=== PATIENT | female | born 1965 | race Caucasian/White ===

== ENCOUNTER 2020-08-10 09:22 | Outpatient (REF) | payer OTHER, SELFPAY ==
[2020-08-10 11:26] LABS: Free T4 (Free Thyroxine) 0.96 ng/dL (0.71-1.85); Thyroid Stimulating Hormone 0.67 uIU/mL (0.32-4.0)
[2020-08-11 08:31] LABS: Triiodothyronine T3 Free 3.4 pg/mL (2.3-4.2)
== END 2020-08-10 09:23 | disposition home or self-care (01) ==
LOC: HO.LAB 09:22
PROVIDERS: PCP Internal Medicine; Visit Provider Internal Medicine
DX: E03.9 Hypothyroidism, unspecified (principal); E04.9 Nontoxic goiter, unspecified
CPT/HCPCS: 36415; 84439; 84443; 84481

== ENCOUNTER 2020-09-30 17:06 | Outpatient (REF) | payer OTHER, SELFPAY ==
--- NOTE | ~2020-09-30 | XR_ITS ---
EXAMINATION: XR KNEE, LEFT CLINICAL INFORMATION: Pain. COMPARISON: None. TECHNIQUE: 4 views of the left knee. FINDINGS: There is no evidence of acute fracture or dislocation of the left knee. Left knee joint spaces are maintained. No left knee effusion. There is mild spurring undersurface of the patella. XR/XR knee LT 2V IMPRESSION: Mild degenerative change patellofemoral joint.
== END 2020-09-30 17:07 | disposition home or self-care (01) ==
LOC: HO.XRAY 17:06
PROVIDERS: PCP Internal Medicine; Visit Provider Internal Medicine
DX: M25.569 Pain in unspecified knee (principal)
CPT/HCPCS: 73560

== ENCOUNTER 2020-11-10 07:22 | Outpatient (REF) | payer OTHER, SELFPAY ==
--- NOTE | ~2020-11-10 | CT_ITS ---
EXAMINATION: CT CHEST SCREENING CLINICAL INFORMATION: Nicotine dependence. Screening. COMPARISON: None. TECHNIQUE: Multidetector volumetric CT imaging of the chest is performed without contrast using low dose technique. Additional 2-D coronal and sagittal reformatted images and axial 3-D maximum intensity projection (MIP) images are generated on the CT workstation. This CT examination was performed using dose optimization techniques as appropriate, variously including the following: *Automated exposure control *Adjustment of mA and/or kV according to patient size (this includes techniques or standardized protocols for targeted exams where dose is matched to indication/reason for exam; i.e. extremities or head) *Use of iterative reconstruction technique DLP: 74 mGy-cm FINDINGS: LUNGS: The lungs are well-expanded and clear of acute pneumonic process. There are no pulmonary nodules, mass or consolidation. There is mild bilateral apical parenchymal scarring and apical pleural thickening. MEDIASTINUM: The thyroid lobes are symmetrically enlarged with mild compression of the trachea. Heart size and the great vessels are normal caliber. There is no pericardial effusion. No abnormal sized mediastinal or hilar lymph nodes seen. There is no pericardial effusion. PLEURA: There is minimal bilateral apical pleural thickening. No pleural effusion or pleural mass seen. AXILLA: No lymphadenopathy. UPPER ABDOMEN: Visualized liver, spleen, pancreas, bilateral adrenal glands, and the gallbladder appear unremarkable. OSSEOUS STRUCTURES: There is no lytic or sclerotic process seen. There is moderate ventral spondylosis mid and lower dorsal spine. CT/CT lung screening IMPRESSION: Unremarkable CT chest exam. ASSESSMENT: Lung-RADS category 1: Negative. RECOMMENDATION: Low-dose annual CT chest.
== END 2020-11-10 07:23 | disposition home or self-care (01) ==
LOC: HO.CT 07:22
PROVIDERS: PCP Internal Medicine; Visit Provider Surgery
DX: Z12.2 Encounter for screening for malignant neoplasm of respiratory organs (principal); F17.210 Nicotine dependence, cigarettes, uncomplicated
CPT/HCPCS: 71271

== ENCOUNTER 2021-12-02 15:05 | Outpatient (REF) | payer OTHER, SELFPAY ==
--- NOTE | ~2021-12-02 | CT_ITS ---
EXAMINATION: CT CHEST SCREENING CLINICAL INFORMATION: Current smoker. Per day. 40 year smoking history. COMPARISON: Previous chest CT October 2020 TECHNIQUE: Multidetector volumetric CT imaging of the chest is performed without contrast using low dose technique. Additional 2D coronal and sagittal reformatted images and axial 3D maximum intensity projection (MIP) images are generated on the CT workstation. This CT examination was performed using dose optimization techniques as appropriate, variously including the following: *Automated exposure control *Adjustment of mA and/or kV according to patient size (this includes techniques or standardized protocols for targeted exams where dose is matched to indication/reason for exam; i.e. extremities or head) *Use of iterative reconstruction technique DLP: 201 mGy-cm FINDINGS: LUNGS: There are small clustered peribronchial 2 mm right upper lobe nodules for example 109 series 5 that are stable. There is a 2 mm calcified right lower lobe nodule axial image 237 series 5. The lungs are otherwise clear. MEDIASTINUM: The thyroid gland is enlarged and extends substernally into the superior mediastinum. This causes mild narrowing of the trachea. The mediastinum is otherwise normal. PLEURA: There is no pleural effusion. No pleural mass or thickening. AXILLA: No lymphadenopathy. UPPER ABDOMEN: There is fullness of the left adrenal gland that is stable. OSSEOUS STRUCTURES: There are mild degenerative changes of the spine. CT/CT lung screening IMPRESSION: Stable small calcified and noncalcified nodules. Stable enlargement of the thyroid gland. ASSESSMENT: Lung-RADS category 2: Benign RECOMMENDATION: Annual low-dose chest CT follow-up recommended.
== END 2021-12-02 15:06 | disposition home or self-care (01) ==
LOC: HO.CT 15:05
PROVIDERS: Visit Provider Physician Assistant Medical
DX: F17.200 Nicotine dependence, unspecified, uncomplicated (principal)
CPT/HCPCS: 71271

== ENCOUNTER 2022-12-02 07:55 | Outpatient (REF) | payer OTHER, SELFPAY ==
--- NOTE | ~2022-12-02 | CT_ITS ---
EXAMINATION: CT CHEST SCREENING CLINICAL INFORMATION: Nicotine dependence. Smoker, 1 pack per day for 40 years. COMPARISON: CT lung screening 12/02/2021 TECHNIQUE: Multidetector volumetric CT imaging of the chest is performed without contrast using low dose technique. Additional 2D coronal and sagittal reformatted images and axial 3D maximum intensity projection (MIP) images are generated on the CT workstation. This CT examination was performed using dose optimization techniques as appropriate, variously including the following: *Automated exposure control *Adjustment of mA and/or kV according to patient size (this includes techniques or standardized protocols for targeted exams where dose is matched to indication/reason for exam; i.e. extremities or head) *Use of iterative reconstruction technique DLP: 521 mGy-cm FINDINGS: LUNGS: The lungs are well-expanded with no acute pneumonic process. 2 mm clustered nodules, right upper lobe anterior segment, are again visualized on axial image 113/6 and are stable. There is a 2 mm nodule, right lower lobe axial image 245/6, stable. No new nodules seen. MEDIASTINUM: The thyroid lobes are enlarged, right greater than left, with mild compromise of the tracheal airway. The central tracheal and bronchial airways are otherwise patent. The heart size and the great vessels are normal caliber. No abnormal size mediastinal or hilar lymph nodes seen. CORONARY ARTERY CALCIFICATION: None visualized on this study. PLEURA: There is no pleural effusion. No pleural mass or thickening. AXILLA: No lymphadenopathy. UPPER ABDOMEN: Visualized liver, spleen, pancreas and bilateral adrenal glands are unremarkable. OSSEOUS STRUCTURES: No aggressive lytic or sclerotic process seen. There is moderate ventral spondylosis, mid and lower dorsal spine. CT/CT lung screening IMPRESSION: Stable bilateral pulmonary nodules. No new nodules seen. ASSESSMENT: Lung-RADS category 2: Benign RECOMMENDATION: Low-dose annual CT chest
== END 2022-12-02 07:56 | disposition home or self-care (01) ==
LOC: HO.CT 07:55
PROVIDERS: PCP Internal Medicine; Visit Provider Physician Assistant Medical
DX: Z12.2 Encounter for screening for malignant neoplasm of respiratory organs (principal); F17.210 Nicotine dependence, cigarettes, uncomplicated
CPT/HCPCS: 71271

== ENCOUNTER 2023-05-16 10:54 | Outpatient (AMB) | payer OTHER, SELFPAY ==
[2023-05-16 10:56] VITALS: BP 110/72; PULSE 77; O2SAT 99; BMI 33.1
--- NOTE | 2023-05-16 10:56 | MHC.PC.OV ---
Vital Signs 05/16/23 10:56 Height 5 ft 6 in Weight 205 lb BMI 33.1 BP 110/72 Blood Pressure Location Lt brachial Position Sitting Pulse 77 Pulse Source Pulse Oximeter Pulse Oximetry (%) 99 Oxygen Delivery Method Room Air Intake Visit Reasons: Right knee pain Allergies No Known Allergies Allergy (Verified 05/16/23 10:56) Medication List - Last Reconciled 05/16/23 by Felipe Javier MD No Known Home Meds Tobacco use date assessed: 05/16/23 Dental Screening Dental Screen Date: 05/16/23 Did you have a dental visit in the last 12 months?: Yes Did you have a dental problem in the last 6 months where you did not have access to dental care?: No Was dental information given to patient?: Patient has dentist HPI Right knee pain HPI Details right knee pain and swelling for a few weeks PFSH Medical History Goiter Surgical History No pertinent past surgical history Family History Father CVD (cardiovascular disease) Mother Hypertension Social History Housing: House Alcohol intake: current Alcohol intake frequency: a few times a month Patient Tobacco Use Status: Current everyday Tobacco user Tobacco use type: Cigarette Cigarettes Per Day: 10 e-Cigarette/Vaping Use: Never Used Second Hand Smoke Exposure: Yes service: No Current occupational status: employed 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 1. Little interest or pleasure in doing things: not at all 2. Feeling down, depressed, or hopeless: not at all 3. Trouble falling or staying asleep, or sleeping too much: not at all 4. Feeling tired or having little energy: not at all 5. Poor appetite or overeating: not at all 6. Feeling bad about yourself - or that you are a failure or have let yourself or your family down: not at all 7. Trouble concentrating on things, such as reading the newspaper or watching television: not at all 8. Moving or speaking so slowly that other people could have noticed. Or the opposite - being so fidgety or restless that you have been moving around a lot more than usual: not at all 9. Thoughts that you would be better off or of hurting yourself in some way: not at all Total score: 0 Depression Screening Interpretation: Negative Depression Screening Done: Yes Source: Developed by Drs. Andrew Bales, Gabriela Savage, Reza Bartlett and colleagues, with an educational taylor from [employer]. Thrive Questionnaire Date Thrive assessed: 05/16/23 I am a: Patient What is your living situation today?: I have a steady place to live Within the past 12 months, did the food you bought not last and you didn't have the money to get more?: Never true Within the past 12 months, did you worry whether your food would run out before you got money to buy more?: Never true Do you have trouble paying for medicines?: No Do you have trouble getting transportation to medical appointments?: No Do you have trouble paying your heating and electricity bill?: No Do you have trouble taking care of your child, family member or friend?: No Do you have trouble with day-to-day activities such as bathing, preparing meals, shopping, managing finances, etc.?: No Are you currently unemployed and looking for a job?: No Are you interested in more education?: No Please select the resources that you would like help with: None AUDIT C Alcohol Use Questionnaire (AUDIT-C) 1. How often do you have a drink containing alcohol?: Monthly or less Total Score: 1 Score Reviewed/Action Taken: Yes ALEXSANDRA-7 AMB Questionnaire ALEXSANDRA-7 Date ALEXSANDRA - 7 assessed: 05/16/23 Feeling nervous, anxious, or on edge: 0 = Not at all Not being able to stop or control worryin = Not at all Worrying too much about different things: 0 = Not at all Trouble relaxin = Not at all Being so restless that it is hard to sit still: 0 = Not at all Becoming easily annoyed or irritable: 0 = Not at all Feeling afraid as if something awful might happen: 0 = Not at all Total ALEXSANDRA-7 score (0-4 normal; 5-9 mild; 10-14 moderate; 15-21 severe): 0 Source: Developed by Drs. Andrew Bales, Gabriela Savage, Reza Bartlett and colleagues, with an educational taylor from [employer]. Review of Systems Const Denies chills, Denies headache(s) and Denies weight loss ENT Denies headache(s) Card Denies chest pain, Denies syncope, Denies irregular heart rhythm and Denies dyspnea Resp Denies chest congestion, Denies cough and Denies dyspnea GI Denies abdominal pain, Denies change in stool character, Denies nausea and Denies vomiting Musc Denies deformity and Denies joint swelling Neuro Denies syncope and Denies headache(s) Physical exam (Primary Care) Vital Signs: Last Vital Signs Pulse 77 05/16/23 10:56 BP 110/72 05/16/23 10:56 Pulse Ox 99 05/16/23 10:56 Oxygen Delivery Method Room Air 05/16/23 10:56 BMI result Body Mass Index 33.1 Tobacco/Smoking Status: Tobacco use Status Tobacco use date assessed 05/16/23 05/16/23 10:58 Patient Tobacco Use Status Current everyday Tobacco 05/16/23 10:58 Tobacco use type Cigarette 05/16/23 10:58 e-Cigarette/Vaping Use Never Used 05/16/23 10:58 PHQ-9: PHQ-9 Score PHQ-9: Total score 0 05/16/23 10:58 Depression Screening Interpretation: Negative Thrive Assessment: Date of Thrive Assessment Date Thrive assessed 05/16/23 05/16/23 10:58 Const General: cooperative, comfortable, no acute distress and alert Neck Neck: Yes no lymphadenopathy Thyroid: Thyroid normal Resp Effort & Inspection: normal respiratory effort Auscultation: clear to auscultation bilaterally Percussion: percussion normal Cardio Jugular venous distension: no JVD Palpation: normal PMI Rate: regular rate Rhythm: regular rhythm Heart sounds: S1 normal heart sound present and S2 normal heart sound present GI Inspection: Yes normal to inspection Palpation (GI): No hepatosplenomegaly present Skin General skin exam: no rashes or lesions noted Extrem General: Yes no clubbing, cyanosis or edema Assessment and Plan Assessment & Plan (1) Knee pain: Code(s): M25.569 - Pain in unspecified knee Plan: xr ice (2) Obesity: Code(s): E66.9 - Obesity, unspecified Plan: nut ref Orders: Orders Comprehensive Fouke. Panel Fast Today N28.9 - Disorder of kidney and ureter, unspecified Lipid Panel Today E78.5 - Hyperlipidemia, unspecified XR knee RT 2V Today M25.569 - Pain in unspecified knee Complete Blood Count Auto Diff Today D64.9 - Anemia, unspecified Thyroid Stimulating Hormone Today E03.9 - Hypothyroidism, unspecified Referrals Environmental Health Manager Nutrition Referral E66.9 - Obesity, unspecified Coding Level of Care Code Est Pt Level 3 (43723) Diagnoses Knee pain M25.569 Obesity E66.9 Additional Codes PHQ-9 - 15531 - PHQ-9 Billing: ([id number])
== END 2023-05-16 11:35 | disposition home or self-care (01) ==
PROVIDERS: PCP Internal Medicine; Visit Provider Internal Medicine
DX: M25.561 Pain in right knee (principal); E66.9 Obesity, unspecified; Z68.33 Body mass index [BMI] 33.0-33.9, adult
CPT/HCPCS: 99213

== ENCOUNTER 2023-06-29 09:01 | Outpatient (AMB) | payer OTHER, SELFPAY ==
--- NOTE | 2023-06-29 09:03 | A.OFFVIS_ITS ---
Intake VS Expanded 06/29/23 09:05 06/29/23 09:15 Height 5 ft 5.5 in 5 ft 5.5 in Weight 207 lb 10.807 oz 208 lb BMI 34.0 34.1 Intake Visit Reasons: Obesity/confirm Allergies No Known Allergies Allergy (Verified 05/16/23 10:56) HPI Nutrition Presentation Details Pt presents for MNT for Obesity. The Pt was referred by PCP, Jose Juan Griffin Pt reports gradually working on reducing calories and has lost 15-20 lbs in over a year. Pt reports now weight has plateaued. Pt reports physical activity has lessened related to winter season Pt reports wanting to work on reducing on smoking however concerned about weight gain post smoking cessation goal weight loss 20 lbs in 6 months Reports having 3 meals per day B: Granola, probiotic and fruits L: chicken/potatoes, water Dinner: chicken/rice or potatoes, snack: fruit or crackers, pastries food frequency fruit 1/d dairy: 0-1/d fish: 1x/wk water : tea 2 cups/d, glass of milk with dinner pastries : 1-2/d ETOH: occ Smokin/2 ppd PMI-Bnggyii-Zk.Jeor Equation Height 5 ft 5.5 in Weight 208 lb Resting Metabolic Rate 1526.14 Calculated Activity Level Sedentary Calories Needed to Maintain Weight 1831.37 Diagnosis Nutrition problem #1 excessive energy intake As related to (etiology) #1 diagnosis As evidenced by (sign/symptom) #1 high BMI (34.1 on 06/2023) Monitoring/Goals Nutrition problem monitoring total CHO intake, weight and oral fluids Nutrition goal/outcome list 3 CHO foods Outcome progress verbalized understanding Learning/Education Readiness to learn good Stages of change action Most Recent Diabetes Results: Creatinine 0.81 MG/DL (0.5-1.4) 07/08/19 Blood Urea Nitrogen 23 MG/DL (9-16) H 07/08/19 Sodium 143 MMOL/L (135-145) 07/08/19 Potassium 4.5 MMOL/L (3.3-5.1) 07/08/19 Chloride 107 MMOL/L (96-108) 07/08/19 Calcium 9.4 MG/DL (8.4-10.2) 07/08/19 AST 18 U/L (5-31) 07/08/19 ALT 21 U/L (0-31) 07/08/19 Total Protein 7.1 G/DL (6.5-8.0) 07/08/19 Albumin 4.7 G/DL (3.5-5.0) 07/08/19 PFSH Medical History Goiter Surgical History No pertinent past surgical history Family History Father CVD (cardiovascular disease) Mother Hypertension Social History Housing: House Alcohol intake: current Alcohol intake frequency: a few times a month Patient Tobacco Use Status: Current everyday Tobacco user Tobacco use type: Cigarette Cigarettes Per Day: 10 e-Cigarette/Vaping Use: Never Used Second Hand Smoke Exposure: Yes service: No Current occupational status: employed 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 Cognitive needs: No Hearing needs: No Vision needs: Yes (reading glasses) Assessment & Plan Assessment & Plan (1) Obesity: Code(s): E66.9 - Obesity, unspecified Plan: wt: 95 kg Est kcal needs as per MSJ: 1800 (40% carb, 30% protein/fat) Est fluid needs as per 25- ml/d: 2850 Est prot per day as per 1 g/kg bw: 95 Recommend fiber intake : 8-10 g per day and gradually increase to 25-28 g per day for women and 35-38 g for men or as tolerated Recommend sodium intake per day : less than 2000 mg Educated patient on: ( R = reviewed V = verbalizes understanding N/R = needs review N/A = not applicable * Food sources of carbohydrate, adequate serving sizes and its role in various health conditions: R * Differences between complex carbohydrates a simple carbohydrates, role of fiber in diet: R * Differences between types of fats and role in diet (mono on saturated fat fatty acids, saturated fatty acids, trans fats): R * Food sources of sodium in salt and healthy modifications for heart health in kidney health: NR * Vitamins and minerals: NR * Healthy plate method concept: R * Physical activity: Benefits a precaution: R V Patient Instructions: Practice mindful eating strategies Work on reducing total carbohydrate at meals to less than 60 g following healthy plate method Keep hydrated by having low sugar or no sugar containing beverages Coding Level of Care Code Nutr Indiv Intake (75308) Diagnoses Obesity E66.9 Time Spent (min) 30
[2023-06-29 09:05] VITALS: BMI 34.0
[2023-07-10 09:17] VITALS: BMI 34.1
== END 2023-06-29 09:50 | disposition home or self-care (01) ==
PROVIDERS: PCP Internal Medicine; Visit Provider Dietitian, Registered
DX: E66.9 Obesity, unspecified (principal)

== ENCOUNTER → 2023-06-29 09:01 | Outpatient (BNVA) | payer OTHER, SELFPAY | PROVIDERS: PCP Internal Medicine; Visit Provider Dietitian, Registered | DX: E66.9 Obesity, unspecified (principal); Z68.34 Body mass index [BMI] 34.0-34.9, adult; Z71.3 Dietary counseling and surveillance | CPT/HCPCS: 97802 ==

== ENCOUNTER 2024-01-09 16:19 | Outpatient (REF) | payer OTHER, SELFPAY ==
--- NOTE | ~2024-01-09 | CT_ITS ---
EXAMINATION: CT LOW-DOSE SCREENING CHEST WITHOUT CONTRAST CLINICAL INFORMATION: Nicotine dependence, cigarettes, uncomplicated. The patient is a current smoker with a 45 pack-year history of smoking. COMPARISON: Multiple prior CT scans of the chest, the most recent of which is dated 12/02/2022 and the most remote of which is dated 11/10/2020. TECHNIQUE: Multidetector volumetric CT imaging of the chest is performed on a Siemens SOMATOM Definition scanner without contrast using low dose technique. Additional 2D coronal and sagittal reformatted images and axial 3D maximum intensity projection (MIP) images are generated on the CT workstation. This CT examination was performed using dose optimization techniques as appropriate, variously including the following: *Automated exposure control *Adjustment of mA and/or kV according to patient size (this includes techniques or standardized protocols for targeted exams where dose is matched to indication/reason for exam; i.e. extremities or head) *Use of iterative reconstruction technique TOTAL EXAM DLP: 43 mGy-cm. CTDIvol: 1.34 mGy. FINDINGS: PULMONARY NODULES: A few tiny micronodules are seen none larger than 2 mm (see tinoco images). There is no new, increasing sized or suspicious lung nodule present. LUNGS: Lungs bilaterally symmetrically expanded. There is mild emphysema and bronchial thickening without bronchiectasis. No effusion or pneumothorax. Central airways patent. MEDIASTINUM: No mediastinal, hilar or axillary adenopathy or free fluid collection. CORONARY ARTERY CALCIFICATION: None visualized on this study. THYROID GLAND: Thyromegaly. CARDIOVASCULAR STRUCTURES: Aortic and heart size normal. No pericardial effusion. CHEST WALL/AXILLA: Unremarkable. UPPER ABDOMEN: Included portions of the solid organs in the upper abdomen unremarkable on noncontrast imaging. Small fat density probable left adrenal nodule is unchanged and needs no additional imaging or followup. OSSEOUS STRUCTURES: No suspicious focal findings. CT/CT lung screening IMPRESSION: 1. No evidence of pulmonary malignancy. 2. Incidental note made of thyromegaly and mild emphysema. 3. Incidental findings (s category): No significant new incidental findings. ASSESSMENT: 1. Lung-RADS Category 2: Benign appearance or behavior of nodules. N/A RECOMMENDATION: Continued routine annual low-dose CT lung screening in 1 year is recommended. An order for CT CHEST LOW DOSE CANCER SCREENING ([id number]) can be placed.
== END 2024-01-09 16:20 | disposition home or self-care (01) ==
LOC: HO.CT 16:19
PROVIDERS: PCP Internal Medicine; Visit Provider Physician Assistant Medical
DX: Z12.2 Encounter for screening for malignant neoplasm of respiratory organs (principal); F17.210 Nicotine dependence, cigarettes, uncomplicated
CPT/HCPCS: 71271

== ENCOUNTER 2024-02-16 11:04 | Outpatient (AMB) | payer OTHER, SELFPAY ==
[2024-02-16 11:06] VITALS: BP 120/80; PULSE 87; O2SAT 97; BMI 32.9
--- NOTE | 2024-02-16 11:06 | A.OFFPC_ITS ---
Vital Signs 02/16/24 11:06 Height 5 ft 5.5 in Weight 201 lb BMI 32.9 BP 120/80 Blood Pressure Location Lt brachial Position Sitting Pulse 87 Pulse Source Pulse Oximeter Pulse Oximetry (%) 97 Oxygen Delivery Method Room Air Intake Visit Reasons: Right ear ache [employer] Worker: Not Required per policy Accompanied by: Self / Same As Patient Allergies No Known Allergies Allergy (Verified 02/16/24 11:07) Medication List - Last Reconciled 02/19/24 by Felipe Javier MD No Known Home Meds Tobacco use date assessed: 02/16/24 Dental Screening Dental Screen Date: 02/16/24 Did you have a dental visit in the last 12 months?: Yes Did you have a dental problem in the last 6 months where you did not have access to dental care?: No Was dental information given to patient?: Patient has dentist HPI Right ear ache HPI Details paresthesias right side f face and ear after electrolysis performed a month ago; slowly improving [facility] Medical History (Updated 11/30/23 @ 08:44 by Kristal Hansen PA-C) Goiter Obesity Nicotine dependence, cigarettes, uncomplicated Surgical History (Updated 11/30/23 @ 08:43 by Kristal Hansen PA-C) History of colonoscopy Family History Father CVD (cardiovascular disease) Mother Hypertension Social History Housing: House Alcohol intake: current Alcohol intake frequency: a few times a month Patient Tobacco Use Status: Current everyday Tobacco user Tobacco use type: Cigarette Cigarettes Per Day: 10 e-Cigarette/Vaping Use: Never Used Second Hand Smoke Exposure: Yes service: No Current occupational status: employed 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 1. Little interest or pleasure in doing things: not at all 2. Feeling down, depressed, or hopeless: not at all 3. Trouble falling or staying asleep, or sleeping too much: not at all 4. Feeling tired or having little energy: not at all 5. Poor appetite or overeating: not at all 6. Feeling bad about yourself - or that you are a failure or have let yourself or your family down: not at all 7. Trouble concentrating on things, such as reading the newspaper or watching television: not at all 8. Moving or speaking so slowly that other people could have noticed. Or the opposite - being so fidgety or restless that you have been moving around a lot more than usual: not at all 9. Thoughts that you would be better off or of hurting yourself in some way: not at all Total score: 0 Depression Screening Interpretation: Negative Depression Screening Done: Yes Source: Developed by Drs. Andrew Bales, Gabriela Savage, Reza Bartlett and colleagues, with an educational taylor from [employer]. Thrive Questionnaire Date Thrive assessed: 02/16/24 I am a: Patient What is your living situation today?: I have a steady place to live Within the past 12 months, did the food you bought not last and you didn't have the money to get more?: Never true Within the past 12 months, did you worry whether your food would run out before you got money to buy more?: Never true Do you have trouble paying for medicines?: No Do you have trouble getting transportation to medical appointments?: No Do you have trouble paying your heating and electricity bill?: No Do you have trouble taking care of your child, family member or friend?: No Do you have trouble with day-to-day activities such as bathing, preparing meals, shopping, managing finances, etc.?: No Are you currently unemployed and looking for a job?: No Are you interested in more education?: No Please select the resources that you would like help with: None THRIVE Score: 0 AUDIT C Alcohol Use Questionnaire (AUDIT-C) 1. How often do you have a drink containing alcohol?: Monthly or less Total Score: 1 Score Reviewed/Action Taken: Yes ALEXSANDRA-7 AMB Questionnaire ALEXSANDRA-7 Date ALEXSANDRA - 7 assessed: 02/16/24 Feeling nervous, anxious, or on edge: 0 = Not at all Not being able to stop or control worryin = Not at all Worrying too much about different things: 0 = Not at all Trouble relaxin = Not at all Being so restless that it is hard to sit still: 0 = Not at all Becoming easily annoyed or irritable: 0 = Not at all Feeling afraid as if something awful might happen: 0 = Not at all Total ALEXSANDRA-7 score (0-4 normal; 5-9 mild; 10-14 moderate; 15-21 severe): 0 Source: Developed by Drs. Andrew Bales, Gabriela Savage, Reza Bartlett and colleagues, with an educational taylor from [employer]. Review of Systems Const Denies chills, Denies headache(s) and Denies weight loss ENT Denies headache(s) Card Denies chest pain, Denies syncope, Denies irregular heart rhythm and Denies d yspnea Resp Denies chest congestion, Denies cough and Denies dyspnea GI Denies abdominal pain, Denies change in stool character, Denies nausea and Den ies vomiting Musc Denies deformity and Denies joint swelling Neuro Denies syncope and Denies headache(s) Physical exam (Primary Care) Vital Signs: Last Vital Signs Pulse 87 02/16/24 11:06 BP 120/80 02/16/24 11:06 Pulse Ox 97 02/16/24 11:06 Oxygen Delivery Method Room Air 02/16/24 11:06 BMI result Body Mass Index 32.9 Tobacco/Smoking Status: Tobacco use Status Tobacco use date assessed 02/16/24 02/16/24 11:08 Patient Tobacco Use Status Current everyday Tobacco 02/16/24 11:08 Tobacco use type Cigarette 02/16/24 11:08 e-Cigarette/Vaping Use Never Used 02/16/24 11:08 PHQ-9: PHQ-9 Score PHQ-9: Total score 0 02/16/24 11:08 Depression Screening Interpretation: Negative Thrive Assessment: Date of Thrive Assessment Date Thrive assessed 02/16/24 02/16/24 11:08 Const General: cooperative, comfortable, no acute distress and alert HENMT Other: normal Neck Neck: Yes no lymphadenopathy Thyroid: Thyroid normal Resp Effort & Inspection: normal respiratory effort Auscultation: clear to auscultation bilaterally Percussion: percussion normal Cardio Jugular venous distension: no JVD Palpation: normal PMI Rate: regular rate Rhythm: regular rhythm Heart sounds: S1 normal heart sound present and S2 normal heart sound present GI Inspection: Yes normal to inspection Palpation (GI): No hepatosplenomegaly present Skin General skin exam: no rashes or lesions noted Extrem General: Yes no clubbing, cyanosis or edema Assessment and Plan Assessment & Plan (1) Facial paresthesia: Code(s): R20.2 - Paresthesia of skin Plan: will hopefully resove over time Coding Level of Care Code Est Pt Level 3 (72703) Diagnoses Facial paresthesia R20.2 Additional Codes PHQ-9 - 81294 - PHQ-9 Billing: ([id number])
== END 2024-02-16 11:25 | disposition home or self-care (01) ==
PROVIDERS: PCP Internal Medicine; Visit Provider Internal Medicine
DX: R20.2 Paresthesia of skin (principal)
CPT/HCPCS: 99213

== ENCOUNTER 2024-09-27 13:53 | Outpatient (AMB) | payer OTHER, SELFPAY ==
--- NOTE | 2024-09-27 14:01 | A.OFFPC_ITS ---
Vital Signs 09/27/24 14:03 Height 5 ft 5.5 in Weight 199 lb 4 oz BMI 32.6 BP 120/68 Blood Pressure Location Lt brachial Position Sitting Pulse 83 Pulse Source Pulse Oximeter Temp 97.1 F Temp Source Temporal Artery Scan Pulse Oximetry (%) 98 Oxygen Delivery Method Room Air Intake Visit Reasons: Annual pe Intake Note: Patient is here today for a physical. Outreach Specialist Required: No Skills Auditor: Not Required per policy Accompanied by: Self / Same As Patient Allergies No Known Allergies Allergy (Verified 09/27/24 14:02) Tobacco use date assessed: 09/27/24 Dental Screening Dental Screen Date: 09/27/24 Did you have a dental visit in the last 12 months?: Yes Did you have a dental problem in the last 6 months where you did not have access to dental care?: No Was dental information given to patient?: Patient has dentist HPI Annual pe HPI Details healthy [facility] Medical History (Updated 09/27/24 @ 14:53 by Felipe Javier MD) Goiter Obesity Nicotine dependence, cigarettes, uncomplicated Surgical History (Updated 09/27/24 @ 14:06 by CITLALY Valle) History of right knee surgery History of colonoscopy Family History Father CVD (cardiovascular disease) Mother Hypertension Social History Housing: House Alcohol intake: current Alcohol intake frequency: a few times a month Patient Tobacco Use Status: Current everyday Tobacco user Tobacco use type: Cigarette Cigarette Packs Per Day: 0.5 Cigarettes Per Day: 10 e-Cigarette/Vaping Use: Never Used Second Hand Smoke Exposure: Yes service: No Current occupational status: employed 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 1. Little interest or pleasure in doing things: not at all 2. Feeling down, depressed, or hopeless: not at all 3. Trouble falling or staying asleep, or sleeping too much: not at all 4. Feeling tired or having little energy: not at all 5. Poor appetite or overeating: not at all 6. Feeling bad about yourself - or that you are a failure or have let yourself or your family down: not at all 7. Trouble concentrating on things, such as reading the newspaper or watching television: not at all 8. Moving or speaking so slowly that other people could have noticed. Or the opposite - being so fidgety or restless that you have been moving around a lot more than usual: not at all 9. Thoughts that you would be better off or of hurting yourself in some way: not at all Total score: 0 Depression Screening Interpretation: Negative Depression Screening Done: Yes Source: Developed by Drs. Andrew Bales, Gabriela Savage, Reza Bartlett and colleagues, with an educational taylor from [employer]. Thrive Questionnaire Date Thrive assessed: 09/27/24 I am a: Patient What is your living situation today?: I have a steady place to live Within the past 12 months, did the food you bought not last and you didn't have the money to get more?: Never true Within the past 12 months, did you worry whether your food would run out before you got money to buy more?: Never true Do you have trouble paying for medicines?: No Do you have trouble getting transportation to medical appointments?: No Do you have trouble paying your heating and electricity bill?: No Do you have trouble taking care of your child, family member or friend?: No Do you have trouble with day-to-day activities such as bathing, preparing meals, shopping, managing finances, etc.?: No Are you currently unemployed and looking for a job?: No Are you interested in more education?: No Please select the resources that you would like help with: None Currently or been in a relationship where the following occur: I choose not to answer THRIVE Score: 0 AUDIT C Alcohol Use Questionnaire (AUDIT-C) 1. How often do you have a drink containing alcohol?: Never Total Score: 0 ALEXSANDRA-7 AMB Questionnaire ALEXSANDRA-7 Date ALEXSANDRA - 7 assessed: 09/27/24 Feeling nervous, anxious, or on edge: 0 = Not at all Not being able to stop or control worryin = Not at all Worrying too much about different things: 0 = Not at all Trouble relaxin = Not at all Being so restless that it is hard to sit still: 0 = Not at all Becoming easily annoyed or irritable: 0 = Not at all Feeling afraid as if something awful might happen: 0 = Not at all Total ALEXSANDRA-7 score (0-4 normal; 5-9 mild; 10-14 moderate; 15-21 severe): 0 Source: Developed by Drs. Andrew Bales, Gabriela Savage, Reza Bartlett and colleagues, with an educational taylor from [employer]. Review of Systems Const Denies chills, Denies fatigue, Denies headache(s) and Denies weight loss Eyes Denies change in vision, Denies diplopia and Denies eye pain ENT Denies vertigo, Denies dizziness, Denies headache(s) and Denies nasal discharge Card Denies chest pain, Denies rapid heart rate and Denies dyspnea on exertion Resp Denies chest congestion, Denies cough, Denies pain with cough and Denies dyspnea on exertion GI Denies abdominal pain, Denies hematochezia and Denies change in bowel habits Musc Denies myalgias, Denies arthralgias and Denies joint swelling Skin/Breast Denies lesions and Denies unusual bruising Neuro Denies vertigo, Denies dizziness, Denies headache(s) and Denies focal weakness Endo Denies fatigue Physical exam (Primary Care) Vital Signs: Last Vital Signs Temp 97.1 F 09/27/24 14:03 Pulse 83 09/27/24 14:03 BP 120/68 09/27/24 14:03 Pulse Ox 98 09/27/24 14:03 Oxygen Delivery Method Room Air 09/27/24 14:03 BMI result Body Mass Index 32.6 Tobacco/Smoking Status: Tobacco use Status Tobacco use date assessed 09/27/24 09/27/24 14:07 Patient Tobacco Use Status Current everyday Tobacco 09/27/24 14:07 Tobacco use type Cigarette 09/27/24 14:07 e-Cigarette/Vaping Use Never Used 09/27/24 14:07 PHQ-9: PHQ-9 Score PHQ-9: Total score 0 09/27/24 14:07 Depression Screening Interpretation: Negative Thrive Assessment: Date of Thrive Assessment Date Thrive assessed 09/27/24 09/27/24 14:07 Currently or been in a relationship where the following occur: I choose not to answer Const General: cooperative, healthy appearing and no acute distress Orientation/consciousness: oriented to person, oriented to place and oriented to time HENMT Head: Yes normal to inspection, Yes normocephalic and Yes atraumatic Mouth: Normal oral and palatal mucosa present and tongue normal Throat: Yes posterior oropharynx normal and Yes uvula midline Eyes General: appearance normal, both eyes and all related structures Neck Neck: Yes normal visual inspection, Yes full ROM and Yes no lymphadenopathy Thyroid: Thyroid normal Carotids: normal carotid upstroke Chest Chest palpation & inspection: normal inspection of the chest Resp Effort & Inspection: normal respiratory effort and able to speak in complete sentences Auscultation: clear to auscultation bilaterally Cardio Jugular venous distension: no JVD Palpation: normal PMI Rate: regular rate Rhythm: regular rhythm Heart sounds: S1 normal heart sound present and S2 normal heart sound present GI Inspection: Yes normal to inspection Palpation (GI): Soft to palpation and No hepatosplenomegaly present Auscultation: normal bowel sounds General: Yes no CVA tenderness Back/Spine/Pelvis Back: no CVA tenderness Skin General skin exam: no rashes or lesions noted Neuro General: oriented to person, oriented to place and oriented to time Extrem General: Yes normal to inspection and Yes full ROM Coding Level of Care Code Est Pt Prev Care 40-64y(26256) Diagnoses Physical exam Z00.00 Assessment & Plan Assessment & Plan (1) Physical exam: Code(s): Z00.00 - Encounter for general adult medical examination without abnormal findings Category: Medical Plan: stable; do labs Orders: Orders Thyroid Stimulating Hormone Today Z13.29 - Encounter for screening for other suspected endocrine disorder Complete Blood Count Auto Diff Today Z13.0 - Encounter for screening for diseases of the blood and blood-forming organs and certain disorders involving the immune mechanism Lipid Panel Today Z13.220 - Encounter for screening for lipoid disorders Comprehensive [place]. Panel Fast Today Z13.9 - Encounter for screening, unspecified
[2024-09-27 14:03] VITALS: BP 120/68; PULSE 83; TEMP 36.2; O2SAT 98; BMI 32.6
--- OUTSIDE RECORDS SUMMARY | 2024-09-27 15:31 | XMS_ITS | Patient Health Record ---
Author Organization [facility] Address [address] [facility] [address] [place] [address] Care Team Providers Care Cashier Greeter Name Role Phone KAILALLUVIA Primary Care Provider Maria Guadalupe Lala Unavailable [phone] Allergies No Known Allergies Results Component Value Reference Range Notes Urinalysis Reviewed date:02/05/2024 08:39:12 AM Interpretation: Performing Lab: Notes/Report: PH 5.0 PROTEIN Neg GLUCOSE Neg BLOOD Neg Reason For Referral No Information Medications Medication SIG (Take, Route, Frequency, Duration) Notes Start Date End Date Status Estradiol Vaginal Cream 0.01% 1 Gram Vaginally Twice a Week for 90 days Please use Good Rx if cheaper for patient. Ty. ID: [id number], BIN: [id number], PCN: [id number], GROUP: [id number] 07/15/2024 Active Multi-Vitamin - 1 tablet Orally Once a day Active Social History Tobacco Use: Social History Observation Description Date Details (start date - stop date) Current Smoker NA - NA Tobacco Use/Smoking Question Answer Notes Are you a current smoker How many cigarettes a day do you smoke? 6-10 Sexual History Question Answer Notes Had sex in the past 12 months (vaginal, oral, or anal)? Yes with Men only Prevention strategies discussed: Other Problems Problem Type SNOMED Code ICD Code Onset Dates Problem Status W/U Status Risk Notes Problem Vitamin D deficiency (50054733) Vitamin D deficiency, unspecified (E55.9) Active confirmed Problem Postmenopausal atrophic vaginitis (97146717) Postmenopausal atrophic vaginitis (N95.2) Active confirmed Problem Urinary incontinence (056115042) Unspecified urinary incontinence (R32) Active confirmed Problem Non-toxic goiter (558982821) Nontoxic goiter, unspecified (E04.9) Active confirmed Problem Primary hyperparathyroidism (19346583) Primary hyperparathyroidism (E21.0) Active confirmed Problem Hyperparathyroidism (01357861) Other hyperparathyroidism (E21.2) Active confirmed Problem Hyperparathyroidism (41567472) Hyperparathyroidism, unspecified (E21.3) Active confirmed Problem Disorder of bone (22856990) Disorder of bone, unspecified (M89.9) Active confirmed Problem Screening for malignant neoplasm of breast (072555775) Encounter for screening mammogram for malignant neoplasm of breast (Z12.31) Active confirmed Problem History of dysplasia of cervix (958606944) Personal history of cervical dysplasia (Z87.410) Active confirmed Problem Vitamin D deficiency (43117970) Vitamin D deficiency, unspecified (E55.9) Active confirmed Problem Dysplasia of cervix (16433984) Dysplasia of cervix, unspecified (622.10) Active confirmed Diag Problem Excessive and frequent menstruation (172519621) Excessive or frequent menstruation (626.2) Active confirmed Diag Problem Gynecological examination normal (644339067868886) Routine gynecological examination (V72.31) Active confirmed Major Problem Counseling (290788240) Counseling NOS (V65.40) Active confirmed Diag Vital Signs Temperature 97.5 degrees Fahrenheit 02/05/2024 Blood pressure diastolic 82 mm Hg 02/05/2024 Height 65 in 02/05/2024 Blood pressure systolic 116 mm Hg 02/05/2024 Weight 199 lbs 02/05/2024 BMI 33.11 kg/m2 02/05/2024 Encounters Encounter Location Date Provider Diagnosis [facility] [place] [address] [address] 02/05/2024 Maria Guadalupe Raymundo Encounter for gynecological examination (general) (routine) without abnormal findings Z01.419 ; Encounter for screening mammogram for malignant neoplasm of breast Z12.31 ; Personal history of cervical dysplasia Z87.410 ; Fecal smearing R15.1 ; Unspecified urinary incontinence R32 and Other specified disorders of bone density and structure, multiple sites M85.89 [facility] [place] [address] [address] 02/05/2024 Maria Guadalupe Raymundo [place] [address] [address] 07/15/2024 Maria Guadalupe Raymundo Assessments Encounter Date Diagnosis (ICD Code) Assessment Notes Treatment Notes Treatment Clinical Notes Section Notes 02/05/2024 Encounter for gynecological examination (general) (routine) without abnormal findings (ICD-10 - Z01.419) NO PAP TEST, DUE IN 2025. 02/05/2024 Encounter for screening mammogram for malignant neoplasm of breast (ICD-10 - Z12.31) REGULAR MAMMOGRAMS AND SBE'S WERE RECOMMENDED. 02/05/2024 Personal history of cervical dysplasia (ICD-10 - Z87.410) DISCUSSED PREVIOUS LASER ABLATION FOR CEZAR AND SUBSEQUENTLY NEGATIVE PAP TESTS. 02/05/2024 Fecal smearing (ICD-10 - R15.1) ENCOURAGED PAT TO RETURN TO DR COVINGTON AND HAVE GOOD COMMUNICATION WHAT CAN BE DONE. DISCUSS THE POSITION SHE FEELS SHE WILL NOT TOLERATE. ANESTHESIA CONSULT MAY HELP. 02/05/2024 Unspecified urinary incontinence (ICD-10 - R32) DISCUSSED DIFFERENT TYPES OF URINARY INCONTINENCE AND NEED FOR EVALUATION AND MS. REFER TO DR COLLIER. 02/05/2024 Other specified disorders of bone density and structure, multiple sites (ICD-10 - M85.89) DISCUSSED HER LAST BMD AND OSTEOPENIA AND ITS IMPACT ON HER HEALTH. ADEQUATE CALCIUM AND VIT D. WEIGHT BEARING EXERCISES REPEAT BMD THIS YEAR. Plan Of Treatment Pending Test Test Name Order Date MAMMOGRAM, SCREENING 05/28/2015 MAMMOGRAM, SCREENING 02/05/2024 Urinalysis 10/08/2018 Urinalysis 01/13/2021 Urinalysis 05/28/2015 Urinalysis 01/20/2022 25OH VITAMIN D 01/13/2021 25OH VITAMIN D 02/22/2021 25OH VITAMIN D 01/25/2023 COMPREHENSIVE METABOLIC PANEL 01/13/2021 N-TELOPEPTIDE CROSS 01/13/2021 PTH, INTACT 02/22/2021 PTH, INTACT 01/13/2021 PTH, INTACT 01/25/2023 THIN PREP,HPV,RICH IF HPV+ (>29YR)(DIAG) 01/23/2023 THIN PREP,HPV,RICH IF HPV+ (>29YR)(SCRN) 09/17/2016 TSH 01/13/2021 BONE DENSITY 01/20/2022 MM Digital Mammo Screening 01/13/2021 MM Digital Mammo Screening 02/05/2024 MM Digital Mammo Screening 01/23/2023 MM Digital Mammo Screening 01/20/2022 Next Appt Details Provider Name:Maria Guadalupe winn, 02/10/2025 08:00:00 AM, [address], [address], [place], [address], Insurance Providers Payer Name Payer Address Payer Phone Subscriber Number Group Number Insured Name Patient Relationship to Insured Coverage Start Date Coverage End Date [employer] [address] [place] [address] [id number] CARMEN MORENO Self - patient is the insured Medical (General) History Medical History History ICD Code Dysplasia of cervix uteri, unspecified N 87.9 Excessive and frequent menstruation with regular cycle N92.0 Postmenopausal atrophic vaginitis N95.2 Inconclusive mammogram R92.2 Dysmenorrhea, unspecified N94.6 Menopausal and female climacteric states N95.1 Disorder of bone, unspecified M89.9 Unspecified hemorrhoids K64.9 Fecal smearing R15.1 Vitamin D deficiency, unspecified E55.9 Other hyperparathyroidism E21.2 Nontoxic goiter, unspecified E04.9 Mammographic heterogeneous density, bila teral breasts R92.333 Surgical History Surgery Date(Month/Year) Marsupialization of Barthelon's Cyst Tonsillectomy Colonoscopy Hospitalization History Reason Date(Month/Year) See Surgical Hx
--- OUTSIDE RECORDS SUMMARY | 2024-09-27 15:31 | XMS_ITS ---
Author Organization [facility] [employer] [facility] Address [address] [address] Care Team Providers Care Director Strategic Account Management Name Role Phone LLUVIA BRIGHT Primary Care Provider Maria Guadalupe Lala Unavailable [phone] REASON FOR VISIT REQUESTING RX Medications Medication SIG (Take, Route, Frequency, Duration) Notes Start Date End Date Status Estradiol Vaginal Cream 0.01% 1 Gram Vaginally Twice a Week for 90 days Please use Good Rx if cheaper for patient. Ty. ID: [id number], BIN: [id number], PCN: [id number], GROUP: [id number] 07/15/2024 Active Encounters Encounter Location Date Provider Diagnosis [facility] [employer] [address] [address] 07/15/2024 Maria Guadalupe Raymundo Plan Of Treatment Medication Medication Name Sig Start Date Stop Date Notes Estradiol Vaginal Cream 0.01% 1 Gram Vaginally Twice a Week for 90 days 07/15/2024 Please use Good Rx if cheaper for patient. Ty. ID: [id number], BIN: [id number], PCN: [id number], GROUP: [id number] Next Appt Details Provider Name:Maria Guadalupe winn, 02/10/2025 08:00:00 AM, [address] [facility], [address], [place], [address], Progress Notes * DIOGO MORENO OB:1965 (59 yo F)Acc No.[id number]:07/15/2024 Patient:?Santos MORENO :1965???Age:59 Y???Sex:Female Address:[address] [place] [address], , [place], [address] * Refills? Start Estradiol Vaginal Cream Cream, 0.01%, Vaginally, 42.5 Gram, 1 Gram, Twice a Week, 90 days, Refills=2 * true * Date:? Generated for Moisés mcfarland/Kia/Arnaudsmitting on:?09/27/2024 03:31 PM EST
--- OUTSIDE RECORDS SUMMARY | 2024-09-27 15:32 | XMS_ITS ---
Author Name [facility] Organization Unknown History of Medication Use Medication Directions Dispensed Refills Start Date End Date Stat lidocaine (PF) 100 mg/5 mL (2 %) injection syringe Take 3 mL by injection route. 09/17/2024 active scopolamine 1 mg over 3 days transdermal patch 1 PATCH TRANSDERMALLY EVERY 3 DAYS NEEDED FOR NAUSEA AND VOMITING active meloxicam 15 mg tablet TAKE 1 TABLET EVERY DAY BY ORAL ROUTE AFTER MEAL(S). active oxycodone 5 mg tablet TAKE 1-2 TABLETS BY MOUTH EVERY 6 HOURS NEEDED. 3 DAY RX. active diclofenac 1 % topical gel APPLY 2 GRAMS TO AFFECTED AREA 4 TIMES A DAY active estradiol 0.01% (0.1 mg/gram) vaginal cream INSERT 1 GRAM TWICE A WEEK active triamcinolone acetonide 40 mg/mL suspension for injection Take 60 mg by injection route. 09/17/2024 active lidocaine (PF) 100 mg/5 mL (2 %) injection syringe active ondansetron HCl 4 mg tablet TAKE 2 TABLETS BY MOUTH TWICE A DAY FOR 3 DAYS. active naproxen 500 mg tablet TAKE 1 TABLET BY MOUTH TWICE A DAY active triamcinolone acetonide 40 mg/mL suspension for injection active Problems Problem Status Onset Date Problem Type Date of Resoluti on Source Osteoarthritis of right knee joint active 2024-09-17 ProblemAct ENS_AONECT
--- OUTSIDE RECORDS SUMMARY | 2024-09-27 15:32 | XMS_ITS ---
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 Name Role Phone LLUVIA BRIGHT Primary Care Provider Maria Guadalupe Lala Unavailable [phone] Allergies No Known Allergies Results Component Value Reference Range Notes Urinalysis Reviewed date:02/05/2024 08:39:12 AM Interpretation: Performing Lab: Notes/Report: PH 5.0 PROTEIN Neg GLUCOSE Neg BLOOD Neg REASON FOR VISIT Annual RIBBON WEAVER Physical, Annual RIBBON WEAVER Physical 60-85+ Medications Medication SIG (Take, Route, Fr equency, Duration) Notes Start Date End Date Status Multi-Vitamin - 1 tablet Orally Once a [...] Problem Status W/U Status Risk Notes Problem Urinary incontinence (076514042) Unspecified urinary incontinence (R32) Active confirmed Vital Signs Temperature 97.5 degrees Fahrenheit 02/05/20 24 Blood pressure systolic 116 mm Hg 02/05/20 24 Blood pressure diastolic 82 mm Hg 024 Height 65 in 02/05/2024 Weight 199 lbs 02/05/2024 BMI 33.11 kg/m2 02/05/2024 Encounters Encounter Location Date Provider Diagnosis [facility] [employer] [facility] [address] [place] [address] 02/05/2024 Maria Guadalupe Raymundo Encounter for gynecological examination (general) (routine) without abnormal findings Z01.419 ; Encounter for screening mammogram for malignant neoplasm of breast Z12.31 ; Personal history of cervical dysplasia Z87.410 ; Fecal smearing R15.1 ; Unspecified urinary incontinence R32 and Other specified disorders of bone density and structure, multiple sites M85.89 Assessments Encounter Date Diagnosis (ICD Code) Assessment [...] REPEAT BMD THIS YEAR. Plan Of Treatment Treatment Notes Assessment Notes Encounter for gynecological examination (general) (routine) without abnormal findings NO PAP TEST, DUE IN 2025. Encounter for screening mamm ogram for malignant neoplasm of breast REGULAR MAMMOGRAMS AND SBE'S WERE RECOMMENDED. Personal history of cervical dysplasia D ISCUSSED PREVIOUS LASER ABLATION FOR CEZAR AND SUBSEQUENTLY NEGATIVE PAP TESTS. Fecal smearing ENCOURAGED PAT TO RE TURN TO DR COVINGTON AND HAVE GOOD COMMUNICATION WHAT CAN BE DONE. DISCUSS THE POSITION SHE FEELS SHE WILL NOT TOLERATE. ANESTHESIA CONSULT MAY HELP. Unspecified urinary incontinence DISCUSSED DIFFERENT TYPES OF URINARY INCONTINENCE AND NEED FOR EVALUATION AND MS. REFER TO DR COLLIER. Other specified disorders of bone density and structure, multiple sites DISCUSSED HER LAST BMD AND OSTEOPENIA AND ITS IMPACT ON HER HEALTH. ADEQUATE CALCIUM AND VIT D. WEIGHT BEARING EXERCISES REPEAT BMD THIS YEAR. Pending Test Test Name Order Date MAMMOGRAM, SCREENING 02/05/2024 MM Digital Mammo Screening 02/05/2024 Next Appt Details Follow Up: 1 Year, Reason: Provider Name:Maria Guadalupe winn, 02/10/2025 08:00:00 AM, [address], [address], [place], [address], Progress Notes * DIOGO MORENO OB:1965 (58 yo F)Acc No.[id number]:02/05/2024 PROGRESS NOTES Patient:?Santos MORENO Appointment Provider:?Maria Guadalupe winn M.D. :1965???Age:58 Y???Sex:Female D ate:02/05/2024 Address:[address] [place], [place] [id number] Pcp:LLUVIA BRIGHT Subjective: * Chief Complaints: * ???Annual RIBBON WEAVER PhysicalAnnual RIBBON WEAVER Physical 60-85+ * HPI: ???New/Follow-up Patient Consult:? PAT ENTERED MENOPAUSE IN 2016.? SHE IS , SELDOM SEXUALLY ACTIVE. SHE NOW C/O URINARY INCONTINENCE.? SHE SAYS SHE HAS WOKEN UP WET AND WITHOUT HER EVEN BEING AWARE OF LOSING URINE.? SHE ALSO ON OCCASION HAS LOST URINE EVEN WHEN JUST SHIFTING POSITIONS. SHE DENIES LOSING URINE WHEN SHE COUGHS OR LAUGHS.? HER OFFICE URINALYSIS LOOKS? NORMAL.? WE WILL REFER HER TO DR COLLIER. SHE HAS HAD PROBLEMS WITH FECAL INCONTINENCE WELL AND HAD BEEN REFERRED TO DR COVINGTON, A COLORECTAL SURGEON.? SHE WAS SCHEDULED FOR SURGERY IN 2019 THEY NOTED SCAR TISSUE PREVENTING THE ANAL SPHINCTERS FROM CLOSING COMPLETELY BUT ON THE DAY OF SURGERY, SHE CANCELLED THE PROCEDURE.? SHE FELT SHE COULD NOT TOLERATE THE POSITION SHE WOULD HAVE TO BE PLACED INTO DUE TO A THYROID CONDITION.? COLONOSCOPY WAS PERFORMED INSTEAD AND POLYPS WERE REMOVED.? SHE HAS ANOTHER APPT WITH DR COVINGTON NEXT YEAR.? SHE WILL DISCUSS HER SURGERY AGAIN. SHE FRACTURED HER LEFT ANKLE IN 2016.? BONE DENSITY STUDY IN 2018 SHOWED OSTEOPENIA WITH LOWEST T-SCORE OF -2.1 AT THE [facility].? REPEAT BMD IN 2021 SHOWED IMPROVEMENT WITH T-SCORE OF -1.5 AT THE [facility].? FRAX=7.8%/1.1%. SHE IS KNOWN TO HAVE THYROID NODULES AND HAS POSITIVE PEMBERSON SIGN,? SHE IS FOLLOWED BY [facility].?? SHE UNDERWENT LASER ABLATION FOR CERVICAL DYSPLASIA IN 1991,? HER SUBSEQUENT PAP TESTS HAVE BEEN NEGATIVE.? HER LAST ONE IN 2022 WAS NEGATIVE AND HPV NEGATIVE. HER LAST MAMMOGRAM DONE IN FEB 2023 SHOWED DENSE BREASTS AND WAS NORMAL.? HER LIFETIME BREAST CA RISK IS 15.2%.. SHE HAD A COLONOSCOPY DONE IN 2019.? SHE IS DUE FOR ANOTHER ONE IN 2024. PFIZER X 3. ???Annual:? Patient presents for annual exam, ages 60-85, postmenopausal. ?General Health Maintenance:?Current breast complaints:?no breast pain, mass, discharge, or skin changes ?Urinary problems:?patient reports no urinary health problems or bowel health problems ?Calcium intake:?takes adequate calcium via diet and supplementation ?Significant RIBBON WEAVER problems:?no significant grounds keeper symptoms or problems * ROS:?general:?no?chest pain.?no?palpitations.?no?headache.?no?cough.?no?shortness of breath.?no?fever.?no?unexplained weight loss.?no?nausea/vomiting.?no?change in bowel movements.?no blood in stool.?no?genitourinary complaints.?no?skin complaints.? * Medical History:? 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 * OB History:?Total pregnancies?2.?Total living children?0.?Miscarriage(s)?2.? * Surgical History:?Marsupiali zation of Barthelon's Cyst Tonsillectomy Colonoscopy * Hospitalization/Major Diagno stic Procedure:?See Surgical Hx * Family History:?Mother: dece ased, Autoimune disorder.?Father: 66 yrs, coronary artery disease.?Maternal uncle: lung cancer, smoker.? * Social History:?Tobacco Use:?Tobacco Use/Smoking?Are you a?current smoker ?How many cigarettes a day do you smoke??6-10 ???Sexual History:?Details of Sexual History?Are you sexually active??Yes ?Sexual History?Had sex in the past 12 months (vaginal, oral, or anal)??Yes ?with?Men only ?Prevention strategies discussed:?Other ???Drugs/Alcohol:?Drugs?Have you used drugs other than those for medical reasons in the past 12 months??No ?Alcohol Screen (Audit-C)?Did you have a drink containing alcohol in the past year?: Yes, How often did you have a drink containing alcohol in the past year?: Monthly or less (1 point), How many drinks did you have on a typical day when you were drinking in the past year?: 1 or 2 drinks (0 point), How often did you have 6 or more drinks on one occasion in the past year?: Never (0 point), Points: 1, Interpretation: Negative.?Miscellaneous:?Children: no. ?Exercise: yes, walking. ?Home smoke detector use: yes. ?Living with: spouse. ?Marital status: . ?Natural support system: yes. 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 ?Sexually active: yes, monogamous relationship. ?Travel outside of the [place]: no. * Medications:?TakingMulti-Vit del toro - Tablet 1 tablet Orally Once a day Taking Multi-Vitamin - Tablet 1 tablet Orally Once a day DiscontinuedVitamin D (Ergocalciferol) 47893 UNIT Capsule 1 capsule Orally EVERY WEEK X 12 Estradiol Vaginal Cream 0.01% Cream 1 Gram Vaginally Twice a week Estradiol Vaginal Cream 0.01% Cream 1 Gram Vaginally Twice a week Vitamin D (Ergocalciferol) 69343 UNIT Capsule 1 capsule Orally ONCE A WEEK Medication List reviewed and reconciled with the patientDiscontinued Vitamin D (Ergocalciferol) 14027 UNIT Capsule 1 capsule Orally EVERY WEEK X 12 Discontinued Estradiol Vaginal Cream 0.01% Cream 1 Gram Vaginally Twice a week Discontinued Estradiol Vaginal Cream 0.01% Cream 1 Gram Vaginally Twice a week Discontinued Vitamin D (Ergocalciferol) 19775 UNIT Capsule 1 capsule Orally ONCE A WEEK Medication List reviewed and reconciled with the patient * Allergies:?N.K.D.A.no[Allerg ies Verified] Objective: * Vitals:?Ht: 65 in, Wt:199lbs , BMI:33.11Index, BP:116/82mm Hg, Temp:97.5F. * Examination: ???General Exam: ?CONSTITUTIONAL:?General Appearance:?alert, in no acute distress, normal, well nourished ?NECK/THYROID:?Inspection/Palpation:?normal ?Thyroid:?normal size and shape ?RESPIRATORY:?Auscultation: clear to auscultation bilaterally, Respiratory Effort: normal.?CARDIOVASCULAR:?Auscultation: regular rate and rhythm.?BREAST, Right:?Inspection/Palpation:?no discharge, no masses present, no nipple retraction, no skin changes, no skin dimpling, no tenderness, no lymphadenopathy, no axillary mass, no axillary tenderness ?BREAST, Left:?Inspection/Palpation:?no discharge, no masses present, no nipple retraction, no skin changes, no skin dimpling, no tenderness, no lymphadenopathy, no axillary mass, no axillary tenderness ?GASTROINTESTINAL:?Abdomen:?no masses, nontender, nondistended ?Liver and Spleen:?normal ?Hernias:?no hernias present, no inguinal adenopathy ?MUSCULOSKELETAL:?Inspection/Palpation:?no clubbing, cyanosis, or edema ?SKIN:?Skin:?normal ?NEURO/PSYCH:?Orientation:?time , place, person ?Mood/Affect:?normal?Genitourinary: ?EXTERNAL GENITALIA:?External Genitalia:?normal, no lesions ?VAGINA:?Vagina:?normal appearance, no abnormal discharge, no lesions ?BLADDER:?Bladder:?no mass, nontender ?URETHRA:?Urethra:?no erythema or lesions present ?CERVIX:?Cervix:?no lesions, nontender ?UTERUS:?Uterus:?nontender, normal contour, normal mobility, normal size ?ADNEXA:?Adnexa:?no masses, no tenderness ?ANUS AND PERINEUM:?Anus/Perineum:?visually normal??? Assessment: * Assessment: 1.?Encounter for gynecologic al examination (general) (routine) without abnormal findings - Z01.419???2.?Encounter for screening mammogram for malignant neoplasm of breast - Z12.31???3.?Personal history of cervical dysplasia - Z87.410???4. Fecal smearing - R15.1???5.?Unspecified urinary incontinence - R32???6.?Other specified disorders of bone density and structure, multiple sites - M85.89??? Plan: * Treatment: ? Value Reference Range ?PH 5.0 * ?PROTEIN Neg * ?GLUCOSE Neg * ?BLOOD Neg * D., PALMIRA 02/05/2024 08:17:42 AM EDT > Notes: NO PAP TEST, DUE IN 2025.??2.?Encounter for screening mammogram for malignant neoplasm of breast?Imaging: MM Digital Mammo Screening Notes: REGULAR MAMMOGRAMS AND SBE'S WERE RECOMMENDED.??3.?Personal history of cervical dysplasia? Notes: DISCUSSED PREVIOUS LASER ABLATION FOR CEZAR AND SUBSEQUENTLY NEGATIVE PAP TESTS.??4.?Fecal smearing? Notes: ENCOURAGED PAT TO RETURN TO DR COVINGTON AND HAVE GOOD COMMUNICATION WHAT CAN BE DONE. DISCUSS THE POSITION SHE FEELS SHE WILL NOT TOLERATE. ANESTHESIA CONSULT MAY HELP.??5.?Unspecified urinary incontinence? Notes: DISCUSSED DIFFERENT TYPES OF URINARY INCONTINENCE AND NEED FOR EVALUATION AND MS. REFER TO DR COLLIER.??6.?Other specified disorders of bone density and structure, multiple sites? Notes: DISCUSSED HER LAST BMD AND OSTEOPENIA AND ITS IMPACT ON HER HEALTH. ADEQUATE CALCIUM AND VIT D. WEIGHT BEARING EXERCISES REPEAT BMD THIS YEAR.?? * Imaging:? * ?Imaging: MAMMOGRAM, SCR EENING * Procedure Codes:? * Preventive Medicine:? ??YOUR PREVENTIVE WELLNESS PLAN:?Osteoporosis prevention?Calcium, D, strength training.?Breast Cancer Screening (Mammogram):?annually.?Cervical Cancer Screening (Pap Smear):?q 3 years with HPV screen.?Colorectal Cancer Screening:?q 10 years.? * Follow Up:?1 Year * Images: Billing Information: * Visit Code:? 16940 Preventive Care Est Pt. Age 65 and over. * Procedure Codes:? * Sign off status: Completed true * Appointment Provider:?Maria Guadalupe Raymundo M.D. Date:?02/05/2024 Generated for Moisés [email or web address]/Kia/Mauricioitting on:?09/27/2024 03:32 PM EST History and Physical Notes * HPI (History of Present Illness) Category Sub-Category Detail Notes Category Not es New/Follow-up Patient Consult PAT ENTERED MENOPAUSE IN 2015. SHE IS , SELDOM SEXUALLY ACTIVE. SHE NOW C/O URINARY INCONTINENCE. SHE SAYS SHE HAS WOKEN UP WET AND WITHOUT HER EVEN BEING AWARE OF LOSING URINE. SHE ALSO ON OCCASION HAS LOST URINE EVEN WHEN JUST SHIFTING POSITIONS. SHE DENIES LOSING URINE WHEN SHE COUGHS OR LAUGHS. HER OFFICE URINALYSIS LOOKS NORMAL. WE WILL REFER HER TO DR COLLIER. SHE HAS HAD PROBLEMS WITH FECAL INCONTINENCE WELL AND HAD BEEN REFERRED TO DR COVINGTON, A COLORECTAL SURGEON. SHE WAS SCHEDULED FOR SURGERY IN 2019 THEY NOTED SCAR TISSUE PREVENTING THE ANAL SPHINCTERS FROM CLOSING COMPLETELY BUT ON THE DAY OF SURGERY, SHE CANCELLED THE PROCEDURE. SHE FELT SHE COULD NOT TOLERATE THE POSITION SHE WOULD HAVE TO BE PLACED INTO DUE TO A THYROID CONDITION. COLONOSCOPY WAS PERFORMED INSTEAD AND POLYPS WERE REMOVED. SHE HAS ANOTHER APPT WITH DR COVINGTON NEXT YEAR. SHE WILL DISCUSS HER SURGERY AGAIN. SHE FRACTURED HER LEFT ANKLE IN 2015. BONE DENSITY STUDY IN 2017 SHOWED OSTEOPENIA WITH LOWEST T-SCORE OF -2.1 AT THE [facility]. REPEAT BMD IN 2021 SHOWED IMPROVEMENT WITH T-SCORE OF -1.5 AT THE [facility]. FRAX=7.8%/1.1%. SHE IS KNOWN TO HAVE THYROID NODULES AND HAS POSITIVE PEMBERSON SIGN, SHE IS FOLLOWED BY [facility]. SHE UNDERWENT LASER ABLATION FOR CERVICAL DYSPLASIA IN 1991, HER SUBSEQUENT PAP TESTS HAVE BEEN NEGATIVE. HER LAST ONE IN 2022 WAS NEGATIVE AND HPV NEGATIVE. HER LAST MAMMOGRAM DONE IN FEB 2023 SHOWED DENSE BREASTS AND WAS NORMAL. HER LIFETIME BREAST CA RISK IS 15.2%.. SHE HAD A COLONOSCOPY DONE IN 2019. SHE IS DUE FOR ANOTHER ONE IN 2024. PFIZER X 3. Annual General Health Maintenance: Current breast complaints:: no breast pain, mass, discharge, or skin changes Urinary problems:: patient r luzmaria no urinary health problems or bowel health problems Calcium intake:: takes adequ ate calcium via diet and supplementation Significant RIBBON WEAVER problems:: n o significant grounds keeper symptoms or problems Examination Category Sub-Category Detail Notes Category Not es General Exam CONSTITUTIONAL: General Appearan ce:: alert, in no acute distress, normal, well nourished NECK/THYROID: Inspection/Palpation:: normal Thyroid:: normal size and shape RESPIRATORY: Auscultation: clear to auscultation bilaterally, Respiratory Effort: normal CARDIOVASCULAR: Auscultation: regula r rate and rhythm GASTROINTESTINAL: Abdomen:: no masses, nontender , nondistended Liver and Spleen:: normal Hernias:: no hernias present, no inguina l adenopathy MUSCULOSKELETAL: Inspection/Palpation:: no clubb ing, cyanosis, or edema SKIN: Skin:: normal NEURO/PSYCH: Orientation:: time , place, pers on Mood/Affect:: normal BREAST, Right: Inspection/Palpation :: no discharge, no masses present, no nipple retraction, no skin changes, no skin dimpling, no tenderness, no lymphadenopathy, no axillary mass, no axillary tenderness BREAST, Left: Inspection/Palpation :: no discharge, no masses present, no nipple retraction, no skin changes, no skin dimpling, no tenderness, no lymphadenopathy, no axillary mass, no axillary tenderness Genitourinary EXTERNAL GENITALIA: External Genitalia:: nor mal, no lesions VAGINA: Vagina:: normal appearance, no a bnormal discharge, no lesions BLADDER: Bladder:: no mass, nontender URETHRA: Urethra:: no erythema or lesions present CERVIX: Cervix:: no lesions, nontender UTERUS: Uterus:: nontender, normal conto ur, normal mobility, normal size ADNEXA: Adnexa:: no masses, no tendernes s ANUS AND PERINEUM: Anus/Perineum:: visually norm al
--- OUTSIDE RECORDS SUMMARY | 2024-09-27 15:32 | XMS_ITS | Continuity of Care Document ---
Author Organization [place] [facility] [place] Address [address] [address] Care Team Providers Care Rn House Supervisor Name Role Phone LLUVIA BRIGHT Primary Care Provider [phone] LLUVIA BRIGHT Referring Provider [phone] Assessment Encounter Date Assessment Date Assessment LastModified by Organization Details LastModified Time 09/17/2024 09/17/2024 Persistent right knee pain status post arthroscopy on 06/17/2024. This was a partial medial meniscectomy. There was some degenerative changes noted at the time of surgery. She has been in physical therapy. Her symptoms have been variable, but today seem to be localizing more towards the medial knee. She also has some soft tissue irritation and soreness. I went over treatment options with her. She is frustrated by her ongoing symptoms. I offered her a repeat cortisone injection which she wanted to pursue. She tolerated this well. Postinjection instructions reviewed. Depending on her response may consider viscosupplementa tion. I also discussed a medial salesperson fashion accessories brace with her. We will see how she responds to the injection first before moving towards authorization for that. She may continue physical therapy exercises/home program. She will let symptoms be her guide with regards to activity. Additionally, dependent on response to the injections and additional treatment may need to consider repeating an MRI. Questions invited and answered. Not available 09/22/2024 11:57:57 Plan of Treatment Reminders Order Date Submit Date Provider Last Modified By Organization Details Last Modified Time Details Appointments None recorded. Lab None recorded. Referral None recorded. Procedures None recorded. Surgeries None recorded. Imaging None recorded. Medication Orders lidocaine (PF) 100 mg/5 mL (2 %) injection syringe 2024 025 [facility]/Pharmacy #[id number], [address] [place], [address], 14:44:20 triamcinolo ne acetonide 40 mg/mL suspension for injection 2024 025 [facility]/Pharmacy #[id number], [address] [place], [address], 14:44:20 Patient TargetsNo targets recorded. Patient Instructions Encounter Date Encounter Id Patient Instructions Last Modified By Organization Details Last Modified Time 09/17/2024 [id number] Patient Instructions Following Cortisone Injections Dr. Morales has recommended a cortisone injection for you in the office today. He has injected the area in order to reduce the pain and inflammation that you are experiencing. Please note that not everyone will have a lasting response following the injection. Here is some information that he would like for you to have: Content of the Injection: The injection consists of two medications. Cortisone (an anti-inflammatory that will take 48-72 hours to take effect) and Lidocaine (a numbing agent that will last 2-3 hours). Once the Lidocaine wears off, you may have an increase in your pain. Dr. Morales recommends icing the affected area for 20 minutes 3-4 times per day. Post-injection Instructions: It is recommended that you refrain from any high level activities using the joint or limb that was injected for approximately 24-48 hours. Normal day to day activities are generally not a problem. Possible Side Effects Skin discoloration: Individuals with dark complexions may experience some skin discoloration locally at the site of the injection. Steroid Flare-Up: There is the possibility of an increase in discomfort within 48 hours following the injection. This is called a ? f lare? . To help minimize the chances of this, please see the post-injection instructions above. Infection: There is a less than 1% chance of an infection. If you notice any signs of infection (redness, warmth, drainage, fever greater than 100 degrees) you should call Dr. Morales? s office immediately at [phone]. Not available 09/17/2024 14:00:33 Reason for Referral None Reported. Problems Name Problem SNOMED Code Status Onset Date Resolution Date Notes Provider Name and Address Organization Details Recorded Time Osteoarthri tis of right knee joint 5633865986095 00 Active 2024 Broderick Morales MD [address], [place], [address], [place] [facility] 14:00:16 Problem Notes None recorded. Procedures Surgical History Date Name Laterality Status Provider Name and Address Organization Details Recorded Time 09/17/2024 SAB Knee Inj w/o-US completed Broderick Morales MD [address], [place], [address], [place] [facility] 09/17/2024 14:00:39 Imaging Results None recorded. Procedure Notes None recorded. Medical Equipment None Reported. Allergies No known drug allergies Medications Name Sig Start Date Stop Date Status Note LastModified by Organization Details LastModified Time meloxicam 15 mg tablet TAKE 1 TABLET EVERY DAY BY ORAL ROUTE AFTER MEAL(S). active Not Available Not Available No t Available ondansetron HCl 4 mg tablet TAKE 2 TABLETS BY MOUTH TWICE A DAY FOR 3 DAYS. active Not Available Not Available No t Available triamcinolon e acetonide 40 mg/mL suspension for injection Take 60 mg by injection route. 2024 active Not Available Not Available Not Avai lable estradiol 0.01% (0.1 mg/gram) vaginal cream INSERT 1 GRAM TWICE A WEEK active Not Available Not Available No t Available scopolamine 1 mg over 3 days transdermal patch 1 PATCH TRANSDERMAL LY EVERY 3 DAYS NEEDED FOR NAUSEA AND VOMITING active Not Available Not Available No t Available naproxen 500 mg tablet TAKE 1 TABLET BY MOUTH TWICE A DAY active Not Available Not Available No t Available oxycodone 5 mg tablet TAKE 1-2 TABLETS BY MOUTH EVERY 6 HOURS NEEDED. 3 DAY RX. active Not Available Not Available No t Available diclofenac 1 % topical gel APPLY 2 GRAMS TO AFFECTED AREA 4 TIMES A DAY active Not Available Not Available Not Available lidocaine (PF) 100 mg/5 mL (2 %) injection syringe Take 3 mL by injection route. 2024 active Not Available Not Available Not Avai lable Vitals Date Recorded Body height Body mass index (BMI) Body weight Provider Name and Address Organization Details Last Updated DateTime 09/17/2024 165.1 cm 33.4 kg/m2 [address].[address] [place] [facility] 09/17/2024 13:20:30 Social History None recorded. Functional Status None recorded. Mental Status None recorded. Family History Nothing Reported. Medical History Condition Response Coronary Artery Disease N Gout N Hyperthyroidism N MRSA N Blood Transfusion N Emphysema N Depression N COPD N Hypothyroidism N Pacemaker N Vascular Disease N Gastrointestinal Disease N Anxiety Disorder N Autoimmune disease N Arthritis Y Cancer N Stroke N High Cholesterol N Neurologic Disorder N Liver Disease N Organ Transplant N Rheumatoid Arthritis N Arrhythmia N Fibromyalgia N Kidney Disease N Allergies/Hayfever N Adverse Reaction to Anesthesia Y Thyroid Problems Y Anemia N Brain Injury N Heart Attack ([place]) N Osteopenia N Diabetes N Bleeding Disorder N Seizures/Epilepsy N AIDS/HIV N Congestive Heart Failure (CHF) N Asthma N Amputation N Reflux/GERD N Sleep Apnea N Aneurysm N Hepatitis N Heart Disease N Pulmonary Embolism N Hypertension N Osteoporosis N Gynecological HistoryNo gynecological history recorded. Obstetrics History GPAL:G 0 P 0 0 0 0 Past Encounters Encounter ID Performer Location Encounter Start Date Encounter Closed Date Diagnosis/Indication Diagnosis SNOMED-CT Code Diagnosis ICD10 Code Diagnosis Note [id number] Broderick Morales MD [address] [address] 09/17/2024 13:00:34 09/17/2024 13:51:44 Pain of right knee joint [id number] 78912 M25.561 Osteoarthr itis of right knee joint 2339525880 81982 M17.11 Health Concerns Section Related Observation LastModified by Organization Detai ls LastModified Time None Recorded Concern Status LastModified by Organization Details LastModified Time None Recorded Payers Encounter Date Sequence Insurance Name Policy Number Policy Fernandez Covered Member ID Fernandez Member ID Guarantor Name 09/17/2024 1 [facility] [id number] Maribell Jacobotin-Pren dayanara [id number] 1 Maribell Romero-Pre ntice Notes Date Note Type Note Provider Name and Address Organization Details Recorded Time 09/17/2024 text/html 59-year-old fema le here for an evaluation and second opinion regarding right knee pain. She brought a number of records with her which I reviewed. These were scanned into her chart. She reports a history of predominantly medially based right knee pain. She was seen at [facility] and indicated for arthroscopic surgery. She reports trying a cortisone injection before surgery. She indicates that a couple weeks before surgery her symptoms had essentially resolved but she decided to go through with it anyway. She had an arthroscopic procedure on 06/17/2024. The knee was initially swollen, then about 3 weeks after the procedure she began to notice a stabbing pain. She reported it to her providers. She was advised to start physical therapy and the sharp pain went away. The pain then started to migrate more towards the pes anserine region. That pain has now improved but she has persistent symptoms more towards the anteromedial knee in the region of her incision. She notes that area is sensitive to touch. There is an ache in that region particularly with walking. She describes additional symptoms as sharp and stabbing. She has not been in physical therapy for the last 3 weeks due to vacations. At her last visit at [facility] she indicates she was offered gel injections and medications. She tried the medications but they gave her headaches so she stopped them. She indicates that she is having some degree of left knee pain perhaps due to favoring the right side. She describes herself as healthy. 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 She currently smokes a half a pack of cigarettes for the last 30 years. The operative report from 06/17/2024 describes a right knee arthroscopy with partial medial meniscectomy. Grade 3 changes were noted retropatellar. Grade 2 changes trochlea. Grade 2 with patchy grade 3 changes medial femoral condyle. Grade 2 changes medial tibial plateau. Grade 2 changes lateral tibial plateau. Lateral meniscus was intact. MRI from 03/10/2024 was read to show horizontal tear of the medial meniscal posterior third extending to the junction of the body. Mild tricompartmental degenerative changes with chondral loss greatest over the patella. Broderick Morales MD [address], [place], [address], [place] [facility] 09/22/2024 12:00:35 OBGyn Episode No OBEpisode recorded.
--- OUTSIDE RECORDS SUMMARY | 2024-09-27 15:32 | XMS_ITS ---
Author Organization [facility] Address [address] [place] [address] Care Team Providers Care Industrial Trainer Name Role Phone LLUVIA BRIGHT Primary Care Provider Maria Guadalupe Lala [phone] REASON FOR VISIT PODIATRIC FOOT AND ANKLE SPECIALIST PVU REQ - FYI Encounters Encounter Location Date Provider Diagnosis [facility] [address] [place] [address] 02/05/2024 Maria Guadalupe Raymundo Plan Of Treatment Next Appt Details Provider Name:Maria Guadalupe winn, 02/10/2025 08:00:00 AM, [address] [facility], [address], [place], [address], Progress Notes * DIOGO MORENO OB:1965 (59 yo F)Acc No.[id number]:02/05/2024 Patient:?Santos MORENO :1965???Age:58 Y???Sex:Female Address:[address] [place] [address], [address] * true * Date:? Generated for Printi ng/Kia/eTransmitting on:?09/27/2024 03:32 PM EST
== END 2024-09-27 14:20 | disposition home or self-care (01) ==
PROVIDERS: PCP Internal Medicine; Visit Provider Internal Medicine
DX: Z00.00 Encounter for general adult medical examination without abnormal findings (principal)

== ENCOUNTER → 2024-09-27 13:53 | Outpatient (BNVA) | payer OTHER, SELFPAY | PROVIDERS: PCP Internal Medicine; Visit Provider Internal Medicine ==

== ENCOUNTER → 2024-12-31 14:26 | Outpatient (BNVA) | payer OTHER, SELFPAY | PROVIDERS: PCP Internal Medicine | DX: Z13.89 Encounter for screening for other disorder (principal) ==

== ENCOUNTER 2025-01-21 13:16 | Outpatient (REF) | payer OTHER, SELFPAY ==
--- NOTE | ~2025-01-21 | CT_ITS ---
CLINICAL HISTORY: F17.210 - Nicotine dependence, cigarettes, uncomplicated CT lung cancer screening (LDCT) Comparison: None provided Technique: Axial CT images of the chest using low-dose technique. Referring provider counseled the patient on shared decision-making for LDCT screening. Additional counseling was provided on smoking cessation. Effective radiation dose total: DLP 34 mGycm, CTDIvol 1.1 mGy. Findings: Lung: No significant pulmonary nodules are noted. There are no coronary artery calcifications. Limited upper abdomen: Unremarkable There is thyromegaly. Impression: LungRADS 1: Negative exam. Continue annual screening with low dose Chest CT in 12 months. ##L1# Category 1: Normal; continue annual screening Category 2: Benign appearance or behavior, continue annual screening Category 3: Probably benign, [address] recommended Category 4A: Suspicious, [address] recommended; may consider PET/CT Category 4B: Suspicious, Additional diagnostics and/or tissue sampling recommended Category 4X: Suspicious, Additional diagnostics and/or tissue sampling recommended Category 0: Recalls (incomplete screen due to Incomplete coverage, Noise, Respiratory motion, Expiration, Obscured by acute abnormality) This document has been electronically signed by: Hector Emery MD on 01/23/2025 11:20:18
--- OUTSIDE RECORDS SUMMARY | 2025-01-21 14:28 | XMS_ITS | Patient Health Record ---
Author Organization [facility] Address [address] [facility] [address] [place] [address] Care Team Providers Care Rotating Equipment Specialist Name Role Phone KAILA LLUVIA Primary Care Provider Maria Guadalupe Lala Unavailable [phone] Allergies No Known Allergies Results Component Value Reference Range Notes Urinalysis Reviewed date:02/05/2024 08:39:12 AM Interpretation: Performing Lab: Notes/Report: PH 5.0 PROTEIN Neg GLUCOSE Neg BLOOD Neg Reason For Referral No Information Medications Medication SIG (Take, Route, Frequency, Duration) Notes Start Date End Date Status Estradiol Vaginal Cream 0.01% 1 Gram Vaginally Twice a Week; Duration: 90 days Please use Good Rx if cheaper for patient. Ty. 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) Nontoxic goiter, unspecified (E04.9) Active confirmed Problem Primary hyperparathyroidism (45959233) Primary hyperparathyroidism (E21.0) Active confirmed Problem Hyperparathyroidism (57187455) Other hyperparathyroidism (E21.2) Active confirmed Problem Hyperparathyroidism (03641688) Hyperparathyroidism, unspecified (E21.3) Active confirmed Problem Disorder of bone (53528287) Disorder of bone, unspecified (M89.9) Active confirmed Problem Screening for malignant neoplasm of breast (422765951) Encounter for screening mammogram for malignant neoplasm of breast (Z12.31) Active confirmed Problem History of dysplasia of cervix (547731238) Personal history of cervical dysplasia (Z87.410) Active confirmed Problem Vitamin D deficiency (07399539) Vitamin D deficiency, unspecified (E55.9) Active confirmed Problem Dysplasia of cervix (81697102) Dysplasia of cervix, unspecified (622.10) Active confirmed Diag Problem Excessive and frequent menstruation (507627833) Excessive or frequent menstruation (626.2) Active confirmed Diag Problem Gynecological examination normal (880082714853973) Routine gynecological examination (V72.31) Active confirmed Major Problem Counseling (770502737) Counseling NOS (V65.40) Active confirmed Diag Vital Signs Temperature 97.5 degrees Fahrenheit 02/05/2024 Blood pressure diastolic 82 mm Hg 02/05/2024 Height 65 in 02/05/2024 Blood pressure systolic 116 mm Hg 02/05/2024 Weight 199 lbs 02/05/2024 BMI 33.11 kg/m2 02/05/2024 Encounters Encounter Location Date Provider Diagnosis [facility] [address] [address] 02/05/2024 Maria Guadalupe Raymundo Encounter for gynecological examination (general) (routine) without abnormal findings Z01.419 ; Encounter for screening mammogram for malignant neoplasm of breast Z12.31 ; Personal history of cervical dysplasia Z87.410 ; Fecal smearing R15.1 ; Unspecified urinary incontinence R32 and Other specified disorders of bone density and structure, multiple sites M85.[address] [address] 02/05/2024 Maria Guadalupe Raymundo [facility] [address] [address] 07/15/2024 Maria Guadalupe Raymundo Assessments Encounter Date [...] Test Name Order Date MAMMOGRAM, SCREENING 02/05/2024 MAMMOGRAM, SCREENING 05/28/2015 Urinalysis 05/28/2015 Urinalysis 01/20/2022 Urinalysis 10/08/2018 Urinalysis 01/13/2021 25OH VITAMIN D 01/13/2021 25OH VITAMIN D 02/22/2021 25OH VITAMIN D 01/25/2023 COMPREHENSIVE METABOLIC PANEL 01/13/2021 N-TELOPEPTIDE CROSS 01/13/2021 PTH, INTACT 01/13/2021 PTH, INTACT 01/25/2023 PTH, INTACT 02/22/2021 THIN PREP,HPV,RICH IF HPV+ (>29YR)(DIAG) 01/23/2023 THIN PREP,HPV,RICH IF HPV+ (>29YR)(SCRN) 09/17/2016 TSH 01/13/2021 BONE DENSITY 01/20/2022 MM Digital Mammo Screening 01/13/2021 MM Digital Mammo Screening 02/05/2024 MM Digital Mammo Screening 01/20/2022 MM Digital Mammo Screening 01/23/2023 Next Appt Details Provider Name:Maria Guadalupe winn, 02/10/2025 08:00:00 AM, [address], [address], [place], [address], Insurance Providers Payer Name Payer Address Payer Phone Subscriber Number Group Number Insured Name Patient Relationship to Insured Coverage Start Date Coverage End Date OZZIE [address] [place] [address] [id number] CARMEN MORENO Self - patient is the [...]
--- OUTSIDE RECORDS SUMMARY | 2025-01-21 14:28 | XMS_ITS | Data Portability ---
Author Organization [place] [facility] [place] Address [address] [place] [address] Care Team Providers Care Woods Rider Name Role Phone LLUVIA BRIGHT Primary Care Provider [phone] LLUVIA BRIGHT Referring Provider [phone] Assessment Encounter Date Assessment Date Assessment LastModified [...] viscosupplementa tion. I also discussed a medial senior control systems engineer brace with her. We will see how she responds to the injection first before moving towards authorization for that. She may continue physical therapy exercises/home program. She will let symptoms be her guide with regards to activity. Additionally, dependent on response to the injections and additional treatment may need to consider repeating an MRI. Questions invited and answered. [email or web address] Not available 09/22/2024 11:57:57 Plan of Treatment Reminders Order Date Submit Date Provider Last Modified By Organization Details Last Modified Time Details Appointments None recorded. Lab None recorded. Referral None recorded. Procedures None recorded. Surgeries None recorded. Imaging None recorded. Medication Orders lidocaine (PF) 100 mg/5 mL (2 %) injection syringe 2024 025 [facility]/Pharmacy #[id number], [address] [place], [address], 14:44:20 triamcinolo ne acetonide 40 mg/mL suspension for injection 2024 025 [facility]/Pharmacy #[id number], [address] [place], [address], 14:44:20 Patient TargetsNo targets recorded. Patient Instructions Encounter Date Encounter Id Patient Instructions Last Modified By Organization Details Last Modified Time 09/17/2024 [id number] Patient Instructions Following Cortisone Injections Dr. Morales [...] following the injection. This is called a flare . To help minimize the chances of this, please see the post-injection instructions above. Infection: There is a less than 1% chance of an infection. If you notice any signs of infection (redness, warmth, drainage, fever greater than 100 degrees) you should call Dr. Morales s office immediately at [phone]. Not available 09/17/2024 14:00:33 Reason for Referral None Reported. Problems Name Problem SNOMED Code Status Onset Date Resolution Date Notes Provider Name and Address Organization Details Recorded Time Osteoarthri tis of right knee joint 8021261238781 00 Active 2024 Broderick Morales MD [address], [place], [address], [place] [facility] 14:00:16 Problem Notes None recorded. Procedures Surgical History Date Name Laterality Status Provider Name and Address Organization Details Recorded Time 09/17/2024 SAB Knee Inj w/o-US completed Broderick Morales MD [address], [place], [address], [place] [facility] 09/17/2024 14:00:39 Imaging Results None recorded. [...] Updated DateTime 09/17/2024 165.1 cm 33.4 kg/m2 85421.[address] [place] [facility] 09/17/2024 13:20:30 Social History None recorded. [...] Anemia N Brain Injury N Heart Attack ([place]) N Osteopenia N Diabetes N Bleeding Disorder N Seizures/Epilepsy N AIDS/HIV N Congestive Heart Failure (CHF) N Asthma N Amputation N Reflux/GERD N Sleep Apnea N Hepatitis N Aneurysm N Heart Disease N Pulmonary Embolism N Hypertension N Osteoporosis N Gynecological HistoryNo gynecological history recorded. Obstetrics History GPAL:G 0 P 0 0 0 0 Past Encounters Encounter ID Performer Location Encounter Start Date Encounter Closed Date Diagnosis/Indication Diagnosis SNOMED-CT Code Diagnosis ICD10 Code Diagnosis Note [id number] Broderick Morales MD [address] [address] 09/17/2024 13:00:34 09/17/2024 13:51:44 Pain of right knee joint [id number] 62878 M25.561 Osteoarthr itis of right knee joint 6508242949 12604 M17.11 Health Concerns Section Related Observation LastModified by Organization Detai ls LastModified Time None Recorded Concern Status LastModified by Organization Details LastModified Time None Recorded Advance Directives Directive None Recorded Payers Insurance Date Sequence Insurance Name Policy Number Policy Fernandez Covered Member ID Fernandez Member ID Guarantor Name 09/23/2024 1 [id number] Maribell Jacobotin-Pren dayanara [id number] Maribell Romero-Pre ntice Notes Date Note [...] right knee pain. She was seen at [facility] and indicated for arthroscopic surgery. She reports [...] to vacations. At her last visit at [facility] she indicates she was offered gel injections and medications. She tried the medications but they gave her headaches so she stopped them. She indicates that she is having some degree of left knee pain perhaps due to favoring the right side. She describes herself as healthy. 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 She currently smokes a half a pack [...] Broderick Morales MD [address], [place], [address], [place] [facility] 09/22/2024 12:00:35 OBGyn Episode No OBEpisode recorded.
--- OUTSIDE RECORDS SUMMARY | 2025-01-21 14:29 | XMS_ITS ---
Author Name [facility] Organization Unknown History of Medication Use Medication Directions Dispensed Refills Start Date End Date Stat us lidocaine (PF) 100 mg/5 mL (2 %) injection syringe Take 3 mL by injection route. 09/17/2024 active triamcinolone acetonide 40 mg/mL suspension for injection Take 60 mg by injection route. 09/17/2024 active triamcinolone acetonide 40 mg/mL suspension for injection active lidocaine (PF) 100 mg/5 mL (2 %) injection syringe active diclofenac 1 % topical gel APPLY 2 GRAMS TO AFFECTED AREA 4 TIMES A DAY active estradiol 0.01% (0.1 mg/gram) vaginal cream INSERT 1 GRAM TWICE A WEEK active meloxicam 15 mg tablet TAKE 1 TABLET EVERY DAY BY ORAL ROUTE AFTER MEAL(S). active naproxen 500 mg tablet TAKE 1 TABLET BY MOUTH TWICE A DAY active ondansetron HCl 4 mg tablet TAKE 2 TABLETS BY MOUTH TWICE A DAY FOR 3 DAYS. active oxycodone 5 mg tablet TAKE 1-2 TABLETS BY MOUTH EVERY 6 HOURS NEEDED. 3 DAY RX. active scopolamine 1 mg over 3 days transdermal patch 1 PATCH TRANSDERMALLY EVERY 3 DAYS NEEDED FOR NAUSEA AND VOMITING active Problems Problem Status Onset Date Problem Type Date of Resoluti on Source Osteoarthritis of right knee joint active 2024-09-17 ProblemAct ENS_AONECT Encounters Encounter Type Encounter Reason Primary Diagnosis Location Date Ambulatory [facility] 09/23/2024 Ambulatory [facility] 09/17/2024 Ambulatory [facility] 09/17/2024 Ambulatory [facility] 09/17/2024 Ambulatory [facility] 09/16/2024 Ambulatory [facility] 09/16/2024 Ambulatory [facility] 08/23/2024
== END 2025-01-21 13:17 | disposition home or self-care (01) ==
LOC: HO.CT 13:16
PROVIDERS: Visit Provider Physician Assistant Medical
DX: Z12.2 Encounter for screening for malignant neoplasm of respiratory organs (principal); F17.210 Nicotine dependence, cigarettes, uncomplicated
CPT/HCPCS: 71271

== ENCOUNTER → 2025-01-21 13:20 | Outpatient (BNV) | payer OTHER, SELFPAY | PROVIDERS: Visit Provider Radiology Diagnostic Radiology | DX: F17.210 Nicotine dependence, cigarettes, uncomplicated (principal) | CPT/HCPCS: 71271 ==

== ENCOUNTER 2025-03-17 15:55 | Outpatient (AMB) | payer OTHER, SELFPAY ==
[2025-03-17 16:37] VITALS: BP 114/66; PULSE 83; RESP 18; TEMP 36.2; O2SAT 94; BMI 33.1
--- NOTE | 2025-03-17 16:37 | A.OFFPC_ITS ---
Vital Signs 03/17/25 16:37 Height 5 ft 5.5 in Weight 202 lb BMI 33.1 BP 114/66 Blood Pressure Location Lt brachial Position Sitting Respiration 18 Pulse 83 Pulse Source Pulse Oximeter Temp 97.1 F Temp Source Temporal Artery Scan Pulse Oximetry (%) 94 Oxygen Delivery Method Room Air Intake Visit Reasons: [place] slaughter Information Delivery Analyst Required: No Accompanied by: Self / Same As Patient Allergies No Known Allergies Allergy (Verified 03/17/25 16:43) Medication List - Last Reconciled 03/17/25 by ADELE Reyna No Known Home Meds Tobacco use date assessed: 03/17/25 Dental Screening Dental Screen Date: 03/17/25 Did you have a dental visit in the last 12 months?: Yes Did you have a dental problem in the last 6 months where you did not have access to dental care?: No Was dental information given to patient?: Patient has dentist HPI [place] pt sukhjinder HPI Details The patient is a 60-year-old female presenting for transitioning of care from Dr. Slaughter, who retired about 5 months ago. She is here to discuss management of her chronic conditions. She has a history of hyperlipidemia, which has been slightly elevated for years, but she has not been on medication due to the absence of other risk factors. Her family history includes heart disease, with her father having had heart attacks and her mother having hypertension. The patient reports dyspnea on exertion, particularly when climbing stairs or walking uphill, which she attributes to being out of shape. She has a history of smoking half a pack a day and recently underwent a lung scan revealing calcified spots, but no significant lung disease was noted. 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 She is under the care of an associate editor and has opted to delay surgical intervention as the goiters are not currently bothersome. She experiences constipation, which began after menopause, and acknowledges inadequate fluid intake as a contributing factor. She is a tea drinker and finds water unappealing, which may contribute to her symptoms. The patient reports weight gain since menopause, which she finds difficult to lose. She has discussed weight management options, including medications like Ozempic, but is cautious due to her thyroid condition. She has a history of right knee osteoarthritis and underwent surgery for a torn meniscus, which has worsened her knee condition. She received a gel injection recently, but it has not yet provided relief. The patient also suffers from plantar fasciitis, which is exacerbated by tendonitis in the hamstring area. She is performing stretches to alleviate the symptoms. Recently, the patient had a COVID-19 infection, which she initially mistook for a cold. She experienced symptoms such as brain fog and low-grade fever but has since recovered. [facility] Medical History Goiter Obesity Nicotine dependence, cigarettes, uncomplicated Surgical History History of right knee surgery History of colonoscopy Family History Father CVD (cardiovascular disease) Mother Hypertension Social History Housing: House Alcohol intake: current Alcohol intake frequency: a few times a month Patient Tobacco Use Status: Current everyday Tobacco user Tobacco use type: Cigarette Cigarette Packs Per Day: 0.5 Cigarettes Per Day: 10 e-Cigarette/Vaping Use: Never Used Second Hand Smoke Exposure: Yes service: No Current occupational status: employed 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 1. Little interest or pleasure in doing things: not at all 2. Feeling down, depressed, or hopeless: not at all 3. Trouble falling or staying asleep, or sleeping too much: not at all 4. Feeling tired or having little energy: not at all 5. Poor appetite or overeating: not at all 6. Feeling bad about yourself - or that you are a failure or have let yourself or your family down: not at all 7. Trouble concentrating on things, such as reading the newspaper or watching television: not at all 8. Moving or speaking so slowly that other people could have noticed. Or the opposite - being so fidgety or restless that you have been moving around a lot more than usual: not at all 9. Thoughts that you would be better off or of hurting yourself in some way: not at all Total score: 0 Depression Screening Interpretation: Negative Depression Screening Done: Yes Source: Developed by Drs. Andrew Bales, Gabriela Savage, Reza Bartlett and colleagues, with an educational taylor from [employer]. Thrive Questionnaire Date Thrive assessed: 03/17/25 I am a: Patient What is your living situation today?: I have a steady place to live Within the past 12 months, did the food you bought not last and you didn't have the money to get more?: Never true Within the past 12 months, did you worry whether your food would run out before you got money to buy more?: Never true Do you have trouble paying for medicines?: No Do you have trouble getting transportation to medical appointments?: No Do you have trouble paying your heating and electricity bill?: No Do you have trouble taking care of your child, family member or friend?: No Do you have trouble with day-to-day activities such as bathing, preparing meals, shopping, managing finances, etc.?: No Are you currently unemployed and looking for a job?: No Are you interested in more education?: No Please select the resources that you would like help with: None Currently or been in a relationship where the following occur: I choose not to answer THRIVE Score: 0 AUDIT C Alcohol Use Questionnaire (AUDIT-C) 1. How often do you have a drink containing alcohol?: Never Total Score: 0 ALEXSANDRA-7 AMB Questionnaire ALEXSANDRA-7 Date ALEXSANDRA - 7 assessed: 03/17/25 Feeling nervous, anxious, or on edge: 0 = Not at all Not being able to stop or control worryin = Not at all Worrying too much about different things: 0 = Not at all Trouble relaxin = Not at all Being so restless that it is hard to sit still: 0 = Not at all Becoming easily annoyed or irritable: 0 = Not at all Feeling afraid as if something awful might happen: 0 = Not at all Total ALEXSANDRA-7 score (0-4 normal; 5-9 mild; 10-14 moderate; 15-21 severe): 0 Source: Developed by Gabriela Salas Kurt Kroenke and colleagues, with an educational taylor from [employer] Review of Systems Const Denies headache(s) Eyes Denies loss of vision ENT Denies vertigo, Denies dizziness, Denies headache(s), Reports neck mass (Goiter) and Denies sore throat Card Denies chest pain, Denies leg edema, Denies lightheadedness and Reports dyspnea on exertion (Particularly when going upstairs and hills) Resp Denies cough, Denies hemoptysis, Reports dyspnea on exertion (Particularly when going upstairs and hills) and Denies wheezing GI Denies abdominal pain, Denies melena, Reports constipation, Denies diarrhea and Denies vomiting Denies urinary frequency, Denies dysuria and Denies urinary urgency Musc Reports arthralgias (Right knee), Denies joint swelling, Denies numbness and Denies tingling Neuro Denies Abnormal speech present, Denies behavioral changes, Denies vertigo, Denies dizziness, Denies headache(s), Denies loss of vision, Denies memory loss, Denies numbness and Denies tingling Psych Denies anxiety, Denies behavioral changes, Denies depression, Denies memory loss and Denies panic attacks Nic/Lymph Denies easy bleeding and Denies easy bruising Aller/Immun Denies wheezing Physical exam (Primary Care) Vital Signs: Last Vital Signs Temp 97.1 F 03/17/25 16:37 Pulse 83 03/17/25 16:37 Resp 18 03/17/25 16:37 BP 114/66 03/17/25 16:37 Pulse Ox 94 03/17/25 16:37 Oxygen Delivery Method Room Air 03/17/25 16:37 BMI result Body Mass Index 33.1 Tobacco/Smoking Status: Tobacco use Status Tobacco use date assessed 03/17/25 03/17/25 16:42 Patient Tobacco Use Status Current everyday Tobacco 03/17/25 16:42 Tobacco use type Cigarette 03/17/25 16:42 e-Cigarette/Vaping Use Never Used 03/17/25 16:42 PHQ-9: PHQ-9 Score PHQ-9: Total score 0 03/17/25 17:19 Depression Screening Interpretation: Negative Thrive Assessment: Date of Thrive Assessment Date Thrive assessed 03/17/25 03/17/25 16:42 Currently or been in a relationship where the following occur: I choose not to answer Const General: healthy appearing, no acute distress, alert and awake Nutritional Appearance: well nourished Orientation/consciousness: oriented to person, oriented to place and oriented to time HENMT Ears: TM's normal bilaterally General nose exam: Normal nasal mucous membranes and turbinates present Eyes Conjunctivae: conjunctivae normal Sclerae: sclerae normal Pupils: Equal, round and reactive pupils present Neck Neck: Yes no lymphadenopathy and Yes no JVD Thyroid: diffusely enlarged (right side bigger than left) Carotids: no bruits Resp Effort & Inspection: normal respiratory effort and not tachypneic Auscultation: no crackles, no rales, no rhonchi and no wheezes Cardio Rate: regular rate Rhythm: regular rhythm Heart sounds: no murmurs and normal S1 and S2 GI Palpation (GI): Soft to palpation, nontender, no hepatomegaly and no splenomegaly Auscultation: normal bowel sounds Skin General skin exam: no rashes or lesions noted and dry skin Neuro General: oriented to person, oriented to place and oriented to time Cranial nerves: Yes Equal, round and reactive pupils present Speech: No Abnormal speech present Gait exam (Neuro): Normal gait present Motor exam (neuro): no tremor noted Extrem Right upper extremity: full ROM Left upper extremity: full ROM Right lower extremity: full ROM and knee Details: no tenderness and no swelling; no edema Left lower extremity: full ROM; no edema Psych Mental Status: mental status grossly normal Speech and movement: Normal speech and movement present Affect: normal affect Attitude: cooperative Thought process: Normal thought process present Coding Level of Care Code Est Pt Level 4 (54079) Diagnoses Dyspnea on exertion R06.09 Hyperlipidemia, unspecified hyperlipidemia type E78.5 Hyperlipidemia type: unspecified Goiter E04.9 Class 1 obesity with body mass index (BMI) of 33.0 to 33.9 in adult, unspecified obesity type, unspecified whether serious comorbidity present E66.811; Z68.33 Obesity type: unspecified obesity type Obesity classification: adult class 1 (BMI 30 - 34.9) Serious obesity comorbidity presence: unspecified whether serious comorbidity present Body mass index: BMI 33.0-33.9 Chronic pain of right knee M25.561; G89.29 Chronicity: chronic Laterality: right Nicotine dependence, cigarettes, uncomplicated F17.210 Plantar fasciitis M72.2 Constipation, unspecified constipation type K59.00 Constipation type: unspecified constipation type Time Spent (min) 41 Assessment & Plan Assessment & Plan (1) Dyspnea on exertion: Code(s): R06.09 - Other forms of dyspnea Category: Medical (2) HLD (hyperlipidemia): Code(s): E78.5 - Hyperlipidemia, unspecified Category: Medical Qualifiers: Hyperlipidemia type: unspecified Qualified Code(s): E78.5 - Hyperlipidemia, unspecified (3) Goiter: Comment: (nontoxic multinodular goiter) Code(s): E04.9 - Nontoxic goiter, unspecified Category: Medical (4) Obesity: Code(s): E66.9 - Obesity, unspecified Category: Medical Qualifiers: Obesity type: unspecified obesity type Obesity classification: adult cl ass 1 (BMI 30 - 34.9) Serious obesity comorbidity presence: unspecified whether serious comorbidity present Body mass index: BMI 33.0-33.9 Qualified Code(s): E66.811 - Obesity, class 1; Z68.33 - Body mass index [BMI] 33.0-33.9, adult (5) Knee pain: Code(s): M25.569 - Pain in unspecified knee Category: Medical Qualifiers: Chronicity: chronic Laterality: right Qualified Code(s): M25.561 - Pain in right knee; G89.29 - Other chronic pain (6) Nicotine dependence, cigarettes, uncomplicated: Comment: (current smoker, 1/2ppd - 30pyh) Code(s): F17.210 - Nicotine dependence, cigarettes, uncomplicated Category: Medical (7) Plantar fasciitis: Code(s): M72.2 - Plantar fascial fibromatosis Category: Medical (8) Constipation: Code(s): K59.00 - Constipation, unspecified Category: Medical Qualifiers: Constipation type: unspecified constipation type Qualified Code(s): K59.00 - Constipation, unspecified Plan Plan Patient was informed and verbally consented to the use of an ambient scribe for clinic note documentation during this visit. 1. Hyperlipidemia :Triglycerides 77, total cholesterol 201, LDL 128, HDL 59 on 09/30/2024 The patient has a history of hyperlipidemia with slightly elevated cholesterol levels. A low cholesterol diet has been attempted in the past without significant improvement. An echocardiogram due reports sob and family history of heart attack, is recommended to assess heart function, and cholesterol levels will be re-evaluated in six months. 2. Dyspnea On Exertion The patient reports dyspnea on exertion, particularly with stairs and hills, which she attributes to being out of shape. An echocardiogram is recommended to evaluate cardiac function. 3. Goiter The patient has multiple large goiters that have been biopsied with negative results. She is under endocrinology care and has opted to delay surgical intervention as the goiters are not currently bothersome. 4. Constipation The patient experiences constipation, which began after menopause, and acknowledges inadequate fluid intake as a contributing factor. Increasing fluid intake and dietary fiber is recommended. 5. Right Knee Osteoarthritis The patient has a history of right knee osteoarthritis and underwent surgery for a torn meniscus, which has worsened her knee condition. A recent gel injection has not yet provided relief, and physical therapy exercises are recommended. 6. Plantar Fasciitis The patient suffers from plantar fasciitis, exacerbated by tendonitis in the hamstring area. Stretching exercises and comfortable foot wear are recommended to alleviate symptoms. 7. Recent Covid-19 Infection The patient recently had a COVID-19 infection, initially mistaken for a cold, with symptoms including brain fog and low-grade fever. She has since recovered, and it is recommended to delay COVID-19 vaccination for a few months to allow natural immunity to build. Orders: Orders Comprehensive Thompson. Panel Fast 6 Months E04.9 - Nontoxic goiter, unspecified, E66.9 - Obesity, unspecified, M25.569 - Pain in unspecified knee, F17.210 - Nicotine dependence, cigarettes, uncomplicated, E78.5 - Hyperlipidemia, unspecified Vitamin D 25-OH Total 6 Months E04.9 - Nontoxic goiter, unspecified, E66.9 - Obesity, unspecified, M25.569 - Pain in unspecified knee, F17.210 - Nicotine dependence, cigarettes, uncomplicated, E78.5 - Hyperlipidemia, unspecified Complete Blood Count Auto Diff 6 Months E04.9 - Nontoxic goiter, unspecified, E66.9 - Obesity, unspecified, M25.569 - Pain in unspecified knee, F17.210 - Nicotine dependence, cigarettes, uncomplicated, E78.5 - Hyperlipidemia, unspecified Lipid Panel 6 Months E04.9 - Nontoxic goiter, unspecified, E66.9 - Obesity, unspecified, M25.569 - Pain in unspecified knee, F17.210 - Nicotine dependence, cigarettes, uncomplicated, E78.5 - Hyperlipidemia, unspecified TSH reflex Free T4 6 Months E04.9 - Nontoxic goiter, unspecified, E66.9 - Obesity, unspecified, M25.569 - Pain in unspecified knee, F17.210 - Nicotine dependence, cigarettes, uncomplicated, E78.5 - Hyperlipidemia, unspecified UA CC w/rflx Micro + Cult 6 Months E04.9 - Nontoxic goiter, unspecified, E66.9 - Obesity, unspecified, M25.569 - Pain in unspecified knee, F17.210 - Nicotine dependence, cigarettes, uncomplicated, E78.5 - Hyperlipidemia, unspecified CA echo transthoracic complete 03/17/25 R06.09 - Other forms of dyspnea
--- OUTSIDE RECORDS SUMMARY | 2025-03-17 17:48 | XMS_ITS | Patient Health Record ---
Author Organization [facility] Address [address] [place] [address] Care Team Providers Care Cafeteria Worker Name Role Phone LLUVIA BRIGHT Primary Care Provider Maria Guadalupe Lala Unavailable [phone] Allergies No Known Allergies Results Component Value Reference Range Notes Urinalysis Reviewed date:02/10/2025 08:31:37 AM Interpretation: Performing Lab: Notes/Report: PH 5.0 PROTEIN Neg GLUCOSE Neg BLOOD Neg Reason For Referral No Information Medications Medication SIG (Take, Route, Frequency, Duration) Notes Start Date End Date Status Multi-Vitamin - 1 tablet Orally Once a day Active Estradiol Vaginal Cream 0.01% 1 Gram to the affected area Vaginal/Vulva Twice a week; Duration: 90 Days 02/10/2025 Active Social History Tobacco Use: Social History Observation Description Date Details (start date - stop date) Current Smoker NA - NA Sexual History Question Answer Notes Had sex in the past 12 months (vaginal, oral, or anal)? Yes with Men only Prevention strategies discussed: Other AUDIT-C (Standard) Question Answer Notes Did you have a drink contain ing alcohol in the past year? Yes How often did you have a dri nk containing alcohol in the past year? Monthly or less (1 point) How many drinks did you have on a typical day when you were drinking in the past year? 1 or 2 drinks (0 point) How often did you have six o r more drinks on one occasion in the past year? Never (0 point) Points 1 Interpretation Negative Tobacco Control (Standard) Question Answer Notes Tobacco use: Current smoker How often do you smoke cigarettes? Every day How many cigarettes a day do you smoke? 6-10 Problems Problem Type SNOMED Code ICD Code Onset Dates Problem Status W/U Status Risk Notes Problem Vitamin D deficiency (25727762) Vitamin D deficiency, unspecified (E55.9) Active confirmed Problem Postmenopausal atrophic vaginitis (08332344) Postmenopausal atrophic vaginitis (N95.2) Active confirmed Problem Urinary incontinence (322657223) Unspecified urinary incontinence (R32) Active confirmed Problem Non-toxic goiter (670729320) Nontoxic goiter, unspecified (E04.9) Active confirmed Problem Primary hyperparathyroidism (44817555) Primary hyperparathyroidism (E21.0) Active confirmed Problem Hyperparathyroidism (40833231) Other hyperparathyroidism (E21.2) Active confirmed Problem Hyperparathyroidism (99531587) Hyperparathyroidism, unspecified (E21.3) Active confirmed Problem Disorder of bone (10463472) Disorder of bone, unspecified (M89.9) Active confirmed Problem Screening for malignant neoplasm of breast (363402447) Encounter for screening mammogram for malignant neoplasm of breast (Z12.31) Active confirmed Problem Screening for osteoporosis (331792956) Encounter for screening for osteoporosis (Z13.820) Active confirmed Problem History of dysplasia of cervix (831744498) Personal history of cervical dysplasia (Z87.410) Active confirmed Problem Vitamin D deficiency (92719226) Vitamin D deficiency, unspecified (E55.9) Active confirmed Problem Dysplasia of cervix (70411366) Dysplasia of cervix, unspecified (622.10) Active confirmed Diag Problem Excessive and frequent menstruation (117032274) Excessive or frequent menstruation (626.2) Active confirmed Diag Problem Gynecological examination normal (891104237152245) Routine gynecological examination (V72.31) Active confirmed Major Problem Counseling (855970766) Counseling NOS (V65.40) Active confirmed Diag Vital Signs Temperature 97.5 degrees Fahrenheit 02/10/2025 Blood pressure diastolic 72 mm Hg 02/10/2025 Height 65 in 02/10/2025 Blood pressure systolic 124 mm Hg 02/10/2025 Weight 200 lbs 02/10/2025 BMI 33.28 kg/m2 02/10/2025 Encounters Encounter Location Date Provider Diagnosis [facility] [address] [place] [address] 02/10/2025 Maria Guadalupe Raymundo Encounter for gynecological examination (general) (routine) without abnormal findings Z01.419 ; Encounter for screening mammogram for malignant neoplasm of breast Z12.31 ; Other specified disorders of bone density and structure, multiple sites M85.89 ; Personal history of cervical dysplasia Z87.410 ; Postmenopausal atrophic vaginitis N95.2 and Dense breasts, unspecified R92.[address] [place] [address] 07/15/2024 Maria Guadalupe Raymundo Assessments Encounter Date Diagnosis (ICD Code) Assessment Notes Treatment Notes Treatment Clinical Notes Section Notes 02/10/2025 Encounter for gynecological examination (general) (routine) without abnormal findings (ICD-10 - Z01.419) NO PAP TEST, DUE IN 2025. 02/10/2025 Encounter for screening mammogram for malignant neoplasm of breast (ICD-10 - Z12.31) REGULAR MAMMOGRAMS AND SBE'S WERE RECOMMENDED. 02/10/2025 Other specified disorders of bone density and structure, multiple sites (ICD-10 - M85.89) DISCUSSED HER LAST 2 BMD'S AND OSTEOPENIA AND IMPROVEMENT NOTED. DISCUSSED IMPLICATIONS OF OSTEOPENIA ON HER HEALTH. ADEQUATE CALCIUM AND VIT D. WEIGHT BEARING EXERCISES. REPEAT BMD THIS YEAR. 02/10/2025 Personal history of cervical dysplasia (ICD-10 - Z87.410) DISCUSSED PREVIOUS LASER THERAPY AND SUBSEQUENTLY NEGATIVE PAP TESTS. REPEAT PAP TEST IN 2025. 02/10/2025 Postmenopausal atrophic vaginitis (ICD-10 - N95.2) DISCUSSED FINDINGS, DX AND TX OPTIONS. EMPHASIZED THE BENEFITS OF ESTRADIOL CREAM AND ENCOURAGED PAT TO RESTART. SHE HAS NO CONTRAINDICATIONS AND ACCEPTS RISKS. RX AND INSTRUCTIONS FOR ESTRADIOL CREAM WERE GIVEN. 02/10/2025 Dense breasts, unspecified (ICD-10 - R92.30) DISCUSSED DENSE BREASTS ON MAMMOGRAM AND ITS IMPLICATIONS. 3D MAMMOGRAMS WERE RECOMMENDED. Plan Of Treatment Pending Test Test Name Order Date MAMMOGRAM, SCREENING 02/10/2025 MAMMOGRAM, SCREENING 02/05/2024 MAMMOGRAM, SCREENING 05/28/2015 Urinalysis 05/28/2015 Urinalysis 10/08/2018 Urinalysis 01/20/2022 Urinalysis 01/13/2021 25OH VITAMIN D 01/13/2021 25OH VITAMIN D 02/22/2021 25OH VITAMIN D 01/25/2023 COMPREHENSIVE METABOLIC PANEL 01/13/2021 N-TELOPEPTIDE CROSS 01/13/2021 PTH, INTACT 01/13/2021 PTH, INTACT 02/22/2021 PTH, INTACT 01/25/2023 THIN PREP,HPV,RICH IF HPV+ (>29YR)(DIAG) 01/23/2023 THIN PREP,HPV,RICH IF HPV+ (>29YR)(SCRN) 09/17/2016 TSH 01/13/2021 BONE DENSITY 02/10/2025 BONE DENSITY 01/20/2022 MM Digital Mammo Screening 01/20/2022 MM Digital Mammo Screening 01/23/2023 MM Digital Mammo Screening 02/10/2025 MM Digital Mammo Screening 01/13/2021 MM Digital Mammo Screening 02/05/2024 Next Appt Details Provider Name:Maria Guadalupe Delacruz waderemy, 02/20/2026 08:30:00 AM, [address], [address], [place], [address], Insurance Providers Payer Name Payer Address Payer Phone Subscriber Number Group Number Insured Name Patient Relationship to Insured Coverage Start Date Coverage End Date [employer] [address] [place] [address] [id number] CARMEN MORENO Self - patient is the [...] Mammographic heterogeneous density, bila teral breasts R92.333 Dense breasts, unspecified R92.30 Surgical History Surgery Date(Month/Year) Marsupialization of Barthelon's Cyst Tonsillectomy Colonoscopy Hospitalization History Reason Date(Month/Year) See Surgical Hx
== END 2025-03-17 17:37 | disposition home or self-care (01) ==
LOC: HO.HMCH 15:56
PROVIDERS: PCP Internal Medicine
DX: R06.09 Other forms of dyspnea (principal); E78.5 Hyperlipidemia, unspecified; E04.9 Nontoxic goiter, unspecified; E66.811 Obesity, class 1; Z68.33 Body mass index [BMI] 33.0-33.9, adult; M25.561 Pain in right knee; G89.29 Other chronic pain; F17.210 Nicotine dependence, cigarettes, uncomplicated; M72.2 Plantar fascial fibromatosis; K59.00 Constipation, unspecified

== ENCOUNTER → 2025-05-08 14:58 | Outpatient (REF) | payer OTHER, SELFPAY ==
--- NOTE | 2025-05-08 15:02 | CA_ITS ---
Transthoracic Echocardiogram Patient (Last, First, Middle): Maribell Donahue A Gender: F Date of : 1965 Age: 60 Procedure Date: 05/08/2025 Procedure Type: Transthoracic Echocardiogram Location: OP Height: 165. cm Weight: 90.72 kg BSA: 1.98 m2 Heart Rate: 79 bpm BP: 138 / 70 mmHg Blue Split Trimmer: YAMILE Serra MD: Floyd MCGILL-C Manager Telecom: Osorio Bahena MD Symptoms: R06.09 - Other forms of dyspnea Study Quality: Fair ECG Rhythm: Sinus Conclusions: - 1. Normal LV ejection fraction 65-70% with grade 1 diastolic dysfunction 2. Normal cardiac valvular Dopplers 3. Normal RV systolic pressure 4. No gross pericardial effusion Findings Left Ventricle Normal left ventricular size, thickness, and systolic function. The visually estimated ejection fraction is between 65-70%. Spectral Doppler is indicative of an impaired relaxation filling pattern. E/E prime ratio is <8, consistent with normal filling pressures. Evidence suggests grade I (mild) diastolic dysfunction. Right Ventricle Normal right ventricular cavity size and systolic function. Atria The left atrium is normal in size. Interatrial shunt cannot be excluded. The right atrium was not well visualized. Aortic Valve The aortic valve structure and function is likely normal. There is no aortic valve stenosis. There is no aortic valve regurgitation. Mitral Valve Likely normal mitral valve structure and function. There is trace mitral valve regurgitation. There is no mitral valve stenosis. Pulmonic Valve The pulmonic valve was not well visualized. Tricuspid Valve Likely normal tricuspid valve structure and function. There is trace tricuspid valve regurgitation. The right ventricular systolic pressure is normal. The right ventricular systolic pressure is 24 mmHg. Normal right atrial pressure. There is no evidence of pulmonary hypertension. Great Vessels All visible segments of the aorta are normal in size. The pulmonary artery was not well visualized. There is no dilatation of the ascending aorta measuring 2.70 cm. Venous The inferior vena cava is normal in size and collapses greater than 50% with inspiration. Pericardium/Pleural There is no evidence of pericardial effusion. Prior Study Comparison No prior study available for comparison. Measurements 2D Linear Measurements IVSd: 0.67 0.6-0.9/0.6-1.0 cm LVIDd: 4.44 3.9-5.3/4.2-5.9 cm LVIDd Index: 2.24 2.4-3.2/2.2-3.1 cm/m2 LVIDs: 2.75 2.0-3.6 cm LVPWd: 0.92 0.7-1.1 cm LA Diam: 3.10 2.7-3.8/3.0-4.0 cm LAIDs Index: 1.57 1.5-2.3 cm/m2 LV Mass: 136.09 67-162/88-224 g LV Mass Index: 68.73 43-95/49-115 g/m2 LVOT Diam: 1.80 3.0+(-)1.3 cm 2D Systolic Function EF 4C: 66.30 >55% EF 2C: 68.10 >55% EF BiP: 66.70 >55% Mitral Valve MV Pk E: 0.94 MV PK A: 1.06 MV Decel Time: 231.00 E/A: 0.90 E'Lateral: 11.40 E'Medial: 8.92 E/E' Med: 10.50 E/E' Lat: 8.30 PHT: 68.00 MVA PHT: 3.24 Decel Butts: 4.07 Aortic Valve AoV Pk Sami: 1.68 AoV Mn Sami: 1.14 AoV VTI: 0.36 AoV Pk Grad: 11.00 Aov Mn Grad: 6.00 JEAN-PIERRE Cont.VTI: 2.11 LVOT LVOT Pk Sami: 1.50 LVOT Mn Sami: 0.98 LVOT VTI: 0.30 LVOT Pk Grad: 9.00 LVOT Mn Grad: 4.00 LVOT Diam: 1.80 LVOT Area: 2.54 Diastolic Function MV Pk E: 0.94 MV Pk A: 1.06 E/A: 0.90 E'Medial: 8.92 E/E' Med: 10.50 E' Laterial: 11.40 E/E' Lat: 8.30 Right Ventricle TAPSE (mm): 26.10 TVS' Sami: 13.70 Tricuspid Valve TR Pk Sami: 2.30 TR Pk Grad: 21.00 RA Press: 3.00 RVSP: 24.00 Great Vessels Aorta Sinus of Valsalva: 2.70 2.0-3.5 cm Ao Asc: 2.70 2.1-3.4 cm Ao Arch: 2.40 Pulmonary Veins Pulm Vein S/D 1.40 Pulmonary Valve PV Pk Sami: 1.43 Peak PV Grad: 8.00 Updated in Other Vendor System with Status of Final Osorio Bahena MD electronically signed on 05/08/2025 4:21:54 PM with status of Final
--- OUTSIDE RECORDS SUMMARY | 2025-05-08 18:51 | XMS_ITS | Patient Health Record ---
Author Organization [facility] Address [address] [place] [address] Care Team Providers Care Mine Geologist Name Role Phone LLUVIA BRIGHT Primary Care Provider Maria Guadalupe Lala Unavailable [phone] Allergies No Known Allergies Results Component Value [...] Status Risk Notes Problem Vitamin D deficiency (35301056) Vitamin D deficiency, unspecified (E55.9) Active confirmed Problem Postmenopausal atrophic vaginitis (79372527) Postmenopausal atrophic vaginitis (N95.2) Active confirmed Problem Urinary incontinence (082619689) Unspecified urinary incontinence (R32) Active confirmed Problem 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, unspecified (E04.9) Active confirmed Problem Primary hyperparathyroidism (95936052) Primary hyperparathyroidism (E21.0) Active confirmed Problem Hyperparathyroidism (30532687) Other hyperparathyroidism (E21.2) Active confirmed Problem Hyperparathyroidism (76215770) Hyperparathyroidism, unspecified (E21.3) Active confirmed Problem Disorder of bone (88343096) Disorder of bone, unspecified (M89.9) Active confirmed Problem Screening for malignant neoplasm of breast (131952581) Encounter for screening mammogram for malignant neoplasm of breast (Z12.31) Active confirmed Problem Screening for osteoporosis (991895440) Encounter for screening for osteoporosis (Z13.820) Active confirmed Problem History of dysplasia of cervix (841725383) Personal history of cervical dysplasia (Z87.410) Active confirmed Problem Vitamin D deficiency (80077863) Vitamin D deficiency, unspecified (E55.9) Active confirmed Problem Dysplasia of cervix (96660817) Dysplasia of cervix, unspecified (622.10) Active confirmed Diag Problem Excessive and frequent menstruation (939106914) Excessive or frequent menstruation (626.2) Active confirmed Diag Problem Gynecological examination normal (171659541587665) Routine gynecological examination (V72.31) Active confirmed Major Problem Counseling (070436782) Counseling NOS (V65.40) Active confirmed Diag Vital Signs Temperature 97.5 degrees Fahrenheit 02/10/2025 Blood pressure diastolic 72 mm Hg 02/10/2025 Height 65 in 02/10/2025 Blood pressure systolic 124 mm Hg 02/10/2025 Weight 200 lbs 02/10/2025 BMI 33.28 kg/m2 02/10/2025 Encounters Encounter Location Date Provider Diagnosis [facility] [address] [place] [address] 02/10/2025 Maria Guadalupe Raymundo Encounter for gynecological examination (general) (routine) without abnormal findings Z01.419 ; Encounter for screening mammogram for malignant neoplasm of breast Z12.31 ; Other specified disorders of bone density and structure, multiple sites M85.89 ; Personal history of cervical dysplasia Z87.410 ; Postmenopausal atrophic vaginitis N95.2 and Dense breasts, unspecified R92.[address] [place] [address] 07/15/2024 Maria Guadalupe Raymundo Assessments Encounter Date [...] Order Date MAMMOGRAM, SCREENING 02/05/2024 MAMMOGRAM, SCREENING 02/10/2025 MAMMOGRAM, SCREENING 05/28/2015 Urinalysis 05/28/2015 Urinalysis 01/20/2022 Urinalysis 10/08/2018 Urinalysis 01/13/2021 25OH VITAMIN D 01/13/2021 25OH VITAMIN D 02/22/2021 25OH VITAMIN D 01/25/2023 COMPREHENSIVE METABOLIC PANEL 01/13/2021 N-TELOPEPTIDE CROSS 01/13/2021 PTH, INTACT 01/13/2021 PTH, INTACT 02/22/2021 PTH, INTACT 01/25/2023 THIN PREP,HPV,RICH IF HPV+ (>29YR)(DIAG) 01/23/2023 THIN PREP,HPV,RICH IF HPV+ (>29YR)(SCRN) 09/17/2016 TSH 01/13/2021 BONE DENSITY 01/20/2022 BONE DENSITY 02/10/2025 MM Digital Mammo Screening 01/13/2021 MM Digital Mammo Screening 02/05/2024 MM Digital Mammo Screening 02/10/2025 MM Digital Mammo Screening 01/20/2022 MM Digital Mammo Screening 01/23/2023 Next Appt Details Provider Name:Maria Guadalupe Delacruz waderemy, 02/20/2026 08:30:00 AM, [address], [address], [place], [address], Insurance Providers Payer Name Payer Address Payer Phone Subscriber Number Group Number Insured Name Patient Relationship to Insured Coverage Start Date Coverage End Date [employer] [address] [place] [address] [phone] [id number] CARMEN MORENO Self - patient is the [...]
--- OUTSIDE RECORDS SUMMARY | 2025-05-08 18:51 | XMS_ITS | Data Portability ---
Author Organization [place] [facility] [place] Address [address] [place] [address] Care Team Providers Care Road Design Engineer Name Role Phone LLUVIA BRIGHT Primary Care Provider LLUVIA BRIGHT Referring Provider [phone] Assessment Encounter Date Assessment Date Assessment LastModified [...] reviewed. Depending on her response may consider viscosupplementation. I also discussed a medial gear room keeper brace with her. We will see how she responds to the injection first before moving towards authorization for that. She may continue physical therapy exercises/home program. She will let symptoms be her guide with regards to activity. Additionally, dependent on response to the injections and additional treatment may need to consider repeating an MRI. Questions invited and answered. Not available 09/22/2024 11:57:57 02/24/2025 02/24/2025 Persistent right knee pain in the setting of medial compartment degenerative changes. Status post partial medial meniscectomy. She has prominent pes anserine irritation today. I again reviewed treatment options with her. Given her ongoing significant symptoms she would like to move forward with the viscosupplementation injection today. She tolerated this well although she let us know that she does not like needles. Icing protocol reviewed. Postinjection instructions reviewed. We will see how she does over the next month or so. Continue home exercise program. Questions invited and answered. Greater than 20 minutes was spent with the encounter today, including face to face time with the patient, documentation, review of records/imaging if applicable, and coordination of care. PRIOR: Persistent right knee pain status post arthroscopy [...] reviewed. Depending on her response may consider viscosupplementation. I also discussed a medial gear room keeper brace with her. We will see how she responds to the injection first before moving towards authorization for that. She may continue physical therapy exercises/home program. She will let symptoms be her guide with regards to activity. Additionally, dependent on response to the injections and additional treatment may need to consider repeating an MRI. Not available 02/24/2025 17:02:39 Plan of Treatment Reminders Order Date Submit Date Provider Last Modified By Organization Details Last Modified Time Details Appointments None recorded. Lab None recorded. Referral None recorded. Procedures None recorded. Surgeries None recorded. Imaging None recorded. Medication Orders Durolane 60 mg/3 mL intra-artic ular syringe 2024 025 [id number], [address] [place], [address], 14:59:47 lidocaine (PF) 100 mg/5 mL (2 %) injection syringe 2024 025 [id number], [address] [place], [address], 14:59:47 lidocaine (PF) 100 mg/5 mL (2 %) injection syringe [address] [id number], [address] [place], [address], 14:44:20 triamcinolo ne acetonide 40 mg/mL suspension for injection [address] [id number], [address] [place], [address], 14:44:20 Patient TargetsNo targets recorded. Patient Instructions Encounter Date Encounter Id Patient Instructions Last Modified By Organization Details Last Modified Time 09/17/2024 [id number] Patient Instruct ions Following Cortisone Injections Dr. Morales has recommended [...] hours following the injection. This is called remy hannon . To help minimize the chances of this, please see the post-injection instructions above. Infection: There is a less than 1% chance of an infection. If you notice any signs of infection (redness, warmth, drainage, fever greater than 100 degrees) you should call Dr. Morales s office immediately at [phone]. [employer] Not available 09/17/2024 14:00:33 02/24/2025 [id number] Patient Instruct ions Following Viscosupplementation Injections Dr. Morales has recommended an injection for you in the office today. He has injected the area in order to reduce the pain that you are experiencing from your arthritis. Please note that not everyone will have a lasting response following the injection. Here is some information that he would like for you to have: Content of the Injection: The injection consists of a lubricating injection called hyaluronic acid. You may experience a small increase in pain following the injection. Dr. Morales recommends icing the affected area [...] locally at the site of the injection. Flare-Up: There is the possibility of an increase in discomfort within 48 hours following the injection. This is called a megan hannon . To help minimize the chances of this, please see the post-injection instructions above. Infection: There is a less than 1% chance of an infection. If you notice any signs of infection (redness, warmth, drainage, fever greater than 100 degrees) you should call Dr. Morales s office immediately at [phone]. Not available 02/24/2025 06:36:44 Reason for Referral None Reported. Problems Name Problem SNOMED Code Status Onset Date Resolution Date Notes Provider Name and Address Organization Details Recorded Time Osteoarthri tis of right knee joint 1671663579234 00 Active 2024 Broderick Morales MD [address], [place], [address], [place] [facility] 14:00:16 Pain of right knee joint 2992308444398 00 Active 2024 Broderick Morales MD [address], [place], [address], [place] [facility] 06:35:32 Problem Notes None recorded. Procedures Surgical History Date Name Laterality Status Provider Name and Address Organization Details Recorded Time Durolane Knee Inj w/US completed Broderick Morales MD [address], [place], [address], [place] [facility] 02/24/2025 17:01:47 SAB Knee Inj w/o-US completed Broderick Morales MD [address], [place], [address], [place] [facility] 09/17/2024 14:00:39 Imaging Results None recorded. [...] lable estradiol 0.01% (0.1 mg/gram) vaginal cream APPLY 1 GRAM TO THE AFFECTED AREA OF VAGINA TWICE A WEEK active Not Available Not [...] mg/5 mL (2 %) injection syringe Take 5 mL by injection route. 2024 active Not Available Not Available Not Avai lable Durolane 60 mg/3 mL intra-articu lar syringe Take 60 mg by intraarticu lar route. 2024 active Not Available Not Available Not Avai lable Vitals Date Recorded Body height Body mass index (BMI) Body weight Provider Name and Address Organization Details Last Updated DateTime 09/17/2024 165.1 cm 33.4 kg/m2 [address]846.[address] [place] [facility] 09/17/2024 13:20:30 Date Recorded Body height Body mass index (BMI) Body weight Provider Name and Address Organization Details Last Updated DateTime 02/24/2025 165.1 cm 33.3 kg/m2 17322.[address] [place] [facility] 02/24/2025 13:22:29 Social History None recorded. Functional Status None recorded. Mental Status None recorded. Family History Nothing Reported. Medical History Condition Response Coronary Artery Disease N Gout N Hyperthyroidism N Blood Transfusion N MRSA N Emphysema N Depression N COPD N [...] Anemia N Brain Injury N Heart Attack (AR) N Osteopenia N Diabetes N Bleeding Disorder [...] Diagnosis SNOMED-CT Code Diagnosis ICD10 Code Diagnosis IMO Codes Diagnosis Note [id number] MD AARTI [address] [address] 09/17/2024 13:00:34 09/17/2024 13:51:44 Pain of right knee joint 3471683285 34980 M25.561 [id number] Osteoarthr itis of right knee joint 8128396247 69927 M17.11 [id number] Broderick Morales MD [address] [address] 02/24/2025 13:17:23 02/24/2025 13:51:44 Osteoarthritis of right knee joint 4539825484 75819 M17.11 [id number] Pain of ri t knee joint 8638902919 17716 M25.561 [id number] Health Concerns Section Related Observation LastModified by Organization Detai ls LastModified Time None Recorded Concern Status LastModified by Organization Details LastModified Time None Recorded Advance Directives Directive None Recorded Payers Insurance Date Sequence Insurance Name Policy Number Policy Fernandez Covered Member ID Fernandez Member ID Guarantor Name 02/24/2025 Giovanny HORNE [id number] Maribell Sandy Subotin-Pren dayanara [id number] Maribell Subotin-Pre ntice Notes Date Note Type Note Provider Name and Address Organization Details Recorded Time 09/17/2024 text/html ROS as noted in the HPI 59-year-old female here for an evaluation and second opinion regarding right knee pain. She brought a number of records with her which I reviewed. These were scanned into her chart. She reports a history of predominantly medially based right knee pain. She was seen at [facility] and indicated for arthroscopic surgery. She [...] to vacations. At her last visit at [facility] she indicates she was offered gel injections and medications. She tried the medications but they gave her headaches so she stopped them. She indicates that she is having some degree of left knee pain perhaps due to favoring the right side. She describes herself as healthy. 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 She currently smokes a half a pack [...] Broderick Morales MD [address], [place], [address], [place] [facility] 09/22/2024 12:00:35 02/24/2025 text/html ROS as noted in the HPI Patient returns for ongoing evaluation of her right knee. Her symptoms are about the same as when I saw her last.Cortisone injection on was very helpful for about a week. Her symptoms have since recurred. Her pain is predominantly medial. She notes occasional swelling. She still feels limited with activities. She had called in and we went forward and requested authorization for viscosupplementation. She would like to move forward with that injection today. PRIOR:59-year-old female here for an evaluation and second opinion regarding right knee pain. She brought a number of records with her which I reviewed. These were scanned into her chart. She reports a history of predominantly medially based right knee pain. She was seen at [facility] and indicated for arthroscopic surgery. She [...] to vacations. At her last visit at [facility] she indicates she was offered gel injections and medications. She tried the medications but they gave her headaches so she stopped them. She indicates that she is having some degree of left knee pain perhaps due to favoring the right side. She describes herself as healthy. 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 She currently smokes a half a pack [...] Broderick Morales MD [address], [place], [address], [place] [facility] 02/24/2025 17:03:12 OBGyn Episode No OBEpisode recorded.
== END ==
LOC: HO.CARD 14:58
DX: R06.09 Other forms of dyspnea (principal)
CPT/HCPCS: 93306

== ENCOUNTER → 2025-05-08 15:02 | Outpatient (BNV) | payer OTHER, SELFPAY | PROVIDERS: Visit Provider Internal Medicine Cardiovascular Disease | DX: R06.09 Other forms of dyspnea (principal) | CPT/HCPCS: 93306 ==